=== PATIENT | female | born 1985 | race African-American/Black ===

== ENCOUNTER 2017-06-15 11:53 | Inpatient (IN) | payer OTHER ==
[~2017-06-15] VITALS: Ht 182.9 cm; Wt 130.1 kg
[2017-06-15] MEDS ORDERED: SODIUM CHLORIDE 0.9% 1,000 ML IV ONE (13:24)
[2017-06-15] MEDS ORDERED: MORPHINE SULFATE 4 MG/ML, 1ML IVPush PRN (13:30)
[2017-06-15] MEDS ORDERED: SODIUM CHLORIDE 0.9% 1,000ML IVBOLUS ONE ×2 (13:30)
[2017-06-15] MEDS ORDERED: ONDANSETRON 2MG/ML, 2ML IVPush ONE (13:30)
[2017-06-15] MEDS ORDERED: SODIUM CHLORIDE FLUSH 10ML SYR IVF ONE (13:30)
[2017-06-15 13:53] LABS: INTERNATIONAL NORMALIZED RATIO 1.13 (0.93-1.1); PROTHROMBIN TIME 11.6 Seconds (9.6-11.5)
[2017-06-15 13:54] LABS: MEAN CORPUSCULAR HEMOGLOBIN 24.5 pg (27.0-34.8); MEAN CORPUSCULAR HGB CONC 32.5 g/dL (32.4-35.8); MEAN CORPUSCULAR VOLUME 75.2 fL (80-100); MEAN PLATELET VOLUME 8.4 fL (7.4-10.4); PLATELET COUNT 428 x10^3/uL (130-400); RED BLOOD COUNT 3.69 x10^6/uL (3.82-5.3); RED CELL DISTRIBUTION WIDTH 19.6 % (9.6-15.2)
[2017-06-15 13:56] LABS: ALANINE AMINOTRANSFERASE 13 U/L (12-78); ALBUMIN 2.9 g/dL (3.4-5.0); CALCIUM 7.9 mg/dL (8.5-10.1); CHLORIDE 113 mmol/L (98-107); CREATININE 9.36 mg/dL (0.55-1.02)
[2017-06-15 13:58] LABS: ALKALINE PHOSPHATASE 99 U/L (45-117); BILIRUBIN,TOTAL 0.6 mg/dL (0.2-1.0); TOTAL PROTEIN 10.9 g/dL (6.4-8.2)
[2017-06-15] MEDS ORDERED: MIDODRINE 5 MG TABLET PO ONE (14:00)
[2017-06-15 14:05] LABS: ANION GAP 15 mmol/L (5-15)
[2017-06-15] MEDS ORDERED: SODIUM BICARBONATE 8.4% 150 MEQ in DEXTROSE 5% 1,000 ML IV SCH (14:30)
[2017-06-15 14:47] LABS: BASOPHILS # (AUTO) 0.05 x10^3/uL (0-0.1); BASOPHILS % (AUTO) 0 % (0-1); EOSINOPHILS # (AUTO) 1.13 x10^3/uL (0-0.4); EOSINOPHILS % (AUTO) 6 % (1-7); LYMPHOCYTES # (AUTO) 2.31 x10^3/uL (1-3.4); LYMPHOCYTES % (AUTO) 13 % (22-44); MD SCAN; MONOCYTES # (AUTO) 1.16 x10^3/uL (0.2-0.8); MONOCYTES % (AUTO) 6 % (2-9); NEUTROPHILS # (AUTO) 13.55 x10^3/uL (1.8-6.8); NEUTROPHILS % (AUTO) 75 % (42-75)
[2017-06-15] MEDS ORDERED: VANCOMYCIN PER PHARMACY MC ONE (15:00)
[2017-06-15] MEDS ORDERED: VANCOMYCIN 2,000 MG in SODIUM CHLORIDE 0.9% 500 ML IV ONE (15:00)
[2017-06-15] MEDS ORDERED: MORPHINE SULFATE 4 MG/ML, 1ML ONE (15:08)
[2017-06-15] MEDS ORDERED: ONDANSETRON 2MG/ML, 2ML ONE (15:09)
[2017-06-15 17:00] LABS: CULTURE INDICATED? YES; MICROSCOPIC INDICATED
[2017-06-15] MEDS ORDERED: HYDROCORTISONE 100 MG INJ. ONE (18:44)
[2017-06-15] MEDS ORDERED: MIDAZOLAM 1 MG/ML, 2ML ONE (18:47)
[2017-06-15] MEDS ORDERED: FENTANYL PF 250 MCG/5ML ONE (18:47)
[2017-06-15] MEDS ORDERED: PROPOFOL 10 MG/ML, 20ML ONE (18:52)
[2017-06-15] MEDS ORDERED: ROCURONIUM 10 MG/ML,10ML ONE (18:52)
[2017-06-15] MEDS ORDERED: ETOMIDATE 40 MG/20 ML ONE (18:52)
[2017-06-15] MEDS ORDERED: SUCCINYLCHOLINE 20 MG/ML, 10ML ONE (18:52)
[2017-06-15] MEDS ORDERED: PHENYLEPHRINE 10 MG/ML ONE (18:52)
[2017-06-15] MEDS ORDERED: HYDROmorphone 2 MG/ML, 1ML ONE (18:53)
[2017-06-15] MEDS: MIDODRINE 5 MG TABLET PO SCH (21:19)
[2017-06-15] MEDS: INSULIN LISPRO 100 UNITS/ML, PEN SQ-INSULIN SCH (21:30)
[2017-06-15] MEDS ORDERED: POLYETHYLENE GLYCOL 17 GM PACKET PO PRN (21:30)
[2017-06-15] MEDS ORDERED: VANCOMYCIN PER PHARMACY MC PRN (21:30)
[2017-06-15] MEDS ORDERED: BISACODYL 10 MG SUPP PR PRN (21:30)
[2017-06-15 21:43] LABS: ANION GAP 14 mmol/L (5-15); CALCIUM 6.7 mg/dL (8.5-10.1); CHLORIDE 118 mmol/L (98-107); CREATININE 7.91 mg/dL (0.55-1.02)
[2017-06-15 21:50] VITALS: BP 93/49
[2017-06-15] MEDS ORDERED: PHARMACOKINETIC CONSULTATION MC ONE (22:00)
[2017-06-15] MEDS ORDERED: PIPERACILLIN/TAZO/PMX 3.375GM 50 ML IV SCH (22:00)
[2017-06-15] MEDS ORDERED: PHARMACOKINETIC MONITORING MC PRN (22:00)
[2017-06-15] MEDS: HYDROcodone/APAP 5/325 TABLET PO PRN (22:29)
[2017-06-15] MEDS: PIPERACILLIN/TAZO/PMX 2.25GM 50 ML IV SCH (22:29)
[2017-06-16 03:30] VITALS: BP 85/43
[2017-06-16] MEDS: ONDANSETRON ODT 4 MG PO PRN ×2 (03:38→07:32)
[2017-06-16] MEDS ORDERED: NOREPINEPHRINE 4 MG in SODIUM CHLORIDE 0.9% 246 ML IV PRN (05:00)
[2017-06-16] MEDS ORDERED: SODIUM CHLORIDE 0.9%, 500ML IVBOLUS ONE (05:00)
[2017-06-16] MEDS ORDERED: SODIUM CHLORIDE 0.9% 1,000 ML IV SCH ×2 (05:00)
[2017-06-16] MEDS: PIPERACILLIN/TAZO/PMX 2.25GM 50 ML IV SCH (05:02)
[2017-06-16 05:18] LABS: ANION GAP 13 mmol/L (5-15); CALCIUM 6.3 mg/dL (8.5-10.1); CHLORIDE 119 mmol/L (98-107)
[2017-06-16 05:21] LABS: ALANINE AMINOTRANSFERASE 9 U/L (12-78); ALKALINE PHOSPHATASE 85 U/L (45-117); BASOPHILS # (AUTO) 0.09 x10^3/uL (0-0.1); BASOPHILS % (AUTO) 1 % (0-1); BILIRUBIN,TOTAL 0.5 mg/dL (0.2-1.0); CREATININE 8.02 mg/dL (0.55-1.02); EOSINOPHILS # (AUTO) 0.93 x10^3/uL (0-0.4); EOSINOPHILS % (AUTO) 6 % (1-7); LYMPHOCYTES # (AUTO) 1.35 x10^3/uL (1-3.4); LYMPHOCYTES % (AUTO) 9 % (22-44); MD NO; MEAN CORPUSCULAR HEMOGLOBIN 24.2 pg (27.0-34.8); MEAN CORPUSCULAR HGB CONC 32.3 g/dL (32.4-35.8); MEAN CORPUSCULAR VOLUME 75.1 fL (80-100); MEAN PLATELET VOLUME 7.9 fL (7.4-10.4); MONOCYTES # (AUTO) 1.12 x10^3/uL (0.2-0.8); MONOCYTES % (AUTO) 7 % (2-9); NEUTROPHILS # (AUTO) 11.68 x10^3/uL (1.8-6.8); NEUTROPHILS % (AUTO) 77 % (42-75); PLATELET COUNT 359 x10^3/uL (130-400); RED BLOOD COUNT 3.05 x10^6/uL (3.82-5.3); RED CELL DISTRIBUTION WIDTH 19.9 % (9.6-15.2); TOTAL PROTEIN 8.2 g/dL (6.4-8.2)
[2017-06-16] MEDS: SODIUM BICARBONATE 8.4% 150 MEQ in DEXTROSE 5% 1,000 ML IV SCH ×2 (05:27→16:20)
[2017-06-16] MEDS: INSULIN LISPRO 100 UNITS/ML, PEN SQ-INSULIN SCH ×3 (07:00→16:00)
[2017-06-16] MEDS: PANTOPRAZOLE 40 MG IV IVPush SCH (07:35)
[2017-06-16 07:59] LABS: HEMOGLOBIN A1C 4.7 % (4.2-6.3)
[2017-06-16] MEDS: MIDODRINE 5 MG TABLET PO SCH ×3 (09:03→21:46)
[2017-06-16] MEDS: HYDROcodone/APAP 5/325 TABLET PO PRN ×3 (09:03→21:45)
[2017-06-16] MEDS: FLUDROCORTISONE 0.1 MG TABLET PO SCH (09:03)
[2017-06-16] MEDS ORDERED: MAGNESIUM SULFATE PMX 2GM/50ML 50 ML IVPB ONE (09:30)
[2017-06-16] MEDS: MEROPENEM 500 MG in SODIUM CHLORIDE 0.9% 100 ML IV SCH (09:35)
[2017-06-16 09:41] VITALS: BP 81/48
[2017-06-16 10:03] VITALS: BP 101/61
[2017-06-16] MEDS ORDERED: ONDANSETRON 2MG/ML, 2ML ONE (11:57)
[2017-06-16] MEDS: ONDANSETRON 2MG/ML, 2ML IVPush PRN (11:59)
[2017-06-16] MEDS: LINEZOLID PMX 600MG/300ML 300 ML IV SCH ×2 (11:59→21:46)
[2017-06-16] MEDS: morphine SULFATE 10 MG/ML, 1ML IVPush PRN (12:15)
[2017-06-16] MEDS ORDERED: PROMETHAZINE 25 MG/ML, 1ML ONE (12:20)
[2017-06-16 12:38] VITALS: BP_SYST 103; BP_DIAS 35; BP_DIAS 65
[2017-06-16 13:40] LABS: ABSOLUTE RETICS # 0.045 x10^6/uL (0.5-2.5); RETICULOCYTE COUNT % 1.25 % (0.5-1.5)
[2017-06-16 13:42] LABS: RED BLOOD COUNT 3.62 x10^6/uL (3.82-5.3)
[2017-06-16 13:47] LABS: CALCIUM 6.1 mg/dL (8.5-10.1)
[2017-06-17 03:43] VITALS: BP 125/85
[2017-06-17] MEDS: ONDANSETRON ODT 4 MG PO PRN (03:51)
[2017-06-17] MEDS: PROMETHAZINE 25 MG/ML, 1ML IM PRN (04:20)
[2017-06-17] MEDS: SODIUM BICARBONATE 8.4% 150 MEQ in DEXTROSE 5% 1,000 ML IV SCH (04:21)
[2017-06-17] MEDS: morphine SULFATE 10 MG/ML, 1ML IVPush PRN (04:25)
[2017-06-17 04:49] LABS: MEAN CORPUSCULAR HEMOGLOBIN 24.1 pg (27.0-34.8); MEAN CORPUSCULAR HGB CONC 32.6 g/dL (32.4-35.8); MEAN PLATELET VOLUME 8.1 fL (7.4-10.4); PLATELET COUNT 393 x10^3/uL (130-400); RED BLOOD COUNT 3.88 x10^6/uL (3.82-5.3); RED CELL DISTRIBUTION WIDTH 20.9 % (9.6-15.2)
[2017-06-17 04:52] LABS: ALBUMIN 1.9 g/dL (3.4-5.0); ANION GAP 7 mmol/L (5-15); CALCIUM 6.6 mg/dL (8.5-10.1); CHLORIDE 107 mmol/L (98-107)
[2017-06-17 04:55] LABS: ALANINE AMINOTRANSFERASE 7 U/L (12-78); ALKALINE PHOSPHATASE 101 U/L (45-117); BILIRUBIN,TOTAL 0.9 mg/dL (0.2-1.0)
[2017-06-17 05:52] LABS: BASOPHILS # (AUTO) 0.16 x10^3/uL (0-0.1); BASOPHILS % (AUTO) 1 % (0-1); EOSINOPHILS # (AUTO) 1.87 x10^3/uL (0-0.4); EOSINOPHILS % (AUTO) 7 % (1-7); LYMPHOCYTES # (AUTO) 2.41 x10^3/uL (1-3.4); LYMPHOCYTES % (AUTO) 9 % (22-44); MD SCAN; MONOCYTES # (AUTO) 1.89 x10^3/uL (0.2-0.8); MONOCYTES % (AUTO) 7 % (2-9); NEUTROPHILS # (AUTO) 21.44 x10^3/uL (1.8-6.8); NEUTROPHILS % (AUTO) 77 % (42-75)
[2017-06-17] MEDS ORDERED: MAGNESIUM SULFATE PMX 2GM/50ML 50 ML IV ONE (06:30)
[2017-06-17] MEDS ORDERED: POTASSIUM CHLORIDE 20 MEQ TAB.ER.PRT PO ONE (06:30)
[2017-06-17] MEDS ORDERED: POTASSIUM CHLORIDE 40 MEQ in SODIUM CHLORIDE 0.9% 100 ML IV ONE (08:00)
[2017-06-17] MEDS: PANTOPRAZOLE 40 MG IV IVPush SCH (08:01)
[2017-06-17] MEDS: FLUDROCORTISONE 0.1 MG TABLET PO SCH (08:02)
[2017-06-17] MEDS: MIDODRINE 5 MG TABLET PO SCH ×3 (08:02→19:50)
[2017-06-17] MEDS: ONDANSETRON 2MG/ML, 2ML IVPush PRN (08:24)
[2017-06-17] MEDS: MEROPENEM 500 MG in SODIUM CHLORIDE 0.9% 100 ML IV SCH (10:24)
[2017-06-17] MEDS: LINEZOLID PMX 600MG/300ML 300 ML IV SCH ×2 (11:17→23:30)
[2017-06-17] MEDS ORDERED: SODIUM CHLORIDE 0.9%, 500ML IVBOLUS ONE (15:30)
[2017-06-17] MEDS: SODIUM CHLORIDE 0.9% 1,000 ML IV SCH (15:30)
[2017-06-17] MEDS: HYDROcodone/APAP 5/325 TABLET PO PRN (19:40)
[2017-06-17] MEDS ORDERED: MEROPENEM 500 MG in SODIUM CHLORIDE 0.9% 100 ML IV SCH (22:00)
[2017-06-17] MEDS: ERGOCALCIFEROL 50,000 UNIT CAPSULE PO SCH (22:09)
[2017-06-17] MEDS: ARANESP 60 MCG/ML **ESRD SQ SCH (22:10)
[2017-06-18] MEDS: ONDANSETRON 2MG/ML, 2ML IVPush PRN ×3 (02:15→19:50)
[2017-06-18 02:32] VITALS: BP 117/80
[2017-06-18 04:35] LABS: MEAN CORPUSCULAR HGB CONC 31.9 g/dL (32.4-35.8); MEAN CORPUSCULAR VOLUME 75.3 fL (80-100); MEAN PLATELET VOLUME 7.3 fL (7.4-10.4); PLATELET COUNT 361 x10^3/uL (130-400); RED BLOOD COUNT 3.56 x10^6/uL (3.82-5.3); RED CELL DISTRIBUTION WIDTH 21.6 % (9.6-15.2)
[2017-06-18 04:47] LABS: ALANINE AMINOTRANSFERASE 7 U/L (12-78); ALBUMIN 1.9 g/dL (3.4-5.0); ANION GAP 8 mmol/L (5-15); CALCIUM 6.5 mg/dL (8.5-10.1); CHLORIDE 110 mmol/L (98-107); CREATININE 5.04 mg/dL (0.55-1.02)
[2017-06-18 04:49] LABS: ALKALINE PHOSPHATASE 93 U/L (45-117); BILIRUBIN,TOTAL 0.6 mg/dL (0.2-1.0); TOTAL PROTEIN 7.6 g/dL (6.4-8.2)
[2017-06-18 05:10] LABS: BASOPHILS # (AUTO) 0.04 x10^3/uL (0-0.1); BASOPHILS % (AUTO) 0 % (0-1); EOSINOPHILS # (AUTO) 2.08 x10^3/uL (0-0.4); EOSINOPHILS % (AUTO) 10 % (1-7); LYMPHOCYTES # (AUTO) 2.73 x10^3/uL (1-3.4); LYMPHOCYTES % (AUTO) 13 % (22-44); MD SCAN; MONOCYTES # (AUTO) 1.38 x10^3/uL (0.2-0.8); MONOCYTES % (AUTO) 7 % (2-9); NEUTROPHILS # (AUTO) 14.38 x10^3/uL (1.8-6.8); NEUTROPHILS % (AUTO) 70 % (42-75)
[2017-06-18] MEDS: SODIUM CHLORIDE 0.9% 1,000 ML IV SCH (05:46)
[2017-06-18] MEDS: PANTOPRAZOLE 40 MG IV IVPush SCH (06:29)
[2017-06-18] MEDS: MIDODRINE 5 MG TABLET PO SCH ×3 (08:22→21:18)
[2017-06-18] MEDS: SEVELAMER 800MG TABLET PO SCH ×3 (08:22→15:35)
[2017-06-18] MEDS: SODIUM BICARBONATE 650 MG TABLET PO SCH ×3 (08:22→15:35)
[2017-06-18] MEDS: FLUDROCORTISONE 0.1 MG TABLET PO SCH (08:23)
[2017-06-18] MEDS: LINEZOLID PMX 600MG/300ML 300 ML IV SCH ×2 (10:26→21:18)
[2017-06-18] MEDS: HEPARIN 5,000 UNITS/ML, 1ML SQ SCH ×2 (13:17→21:14)
[2017-06-18 13:59] LABS: CLOSTRIDIUM DIFFICILE ANTIGEN POSITIVE; CLOSTRIDIUM DIFFICILE TOXIN NEGATIVE (Negative)
[2017-06-18] MEDS ORDERED: FENTANYL PF 250 MCG/5ML ONE (17:01)
[2017-06-18] MEDS ORDERED: MIDAZOLAM 1 MG/ML, 2ML ONE (17:01)
[2017-06-18] MEDS ORDERED: LIDOCAINE GEL 2%, 5ML ONE (17:02)
[2017-06-18] MEDS ORDERED: PROPOFOL 10 MG/ML, 20ML ONE (17:03)
[2017-06-18] MEDS ORDERED: NEOSTIGMINE 1 MG/ML, 10ML ONE (17:03)
[2017-06-18] MEDS ORDERED: GLYCOPYRROLATE 0.2MG/1ML, 5ML ONE (17:03)
[2017-06-18] MEDS ORDERED: DEXAMETHASONE 4 MG/ML, 1ML ONE (17:03)
[2017-06-18] MEDS ORDERED: ROCURONIUM 10 MG/ML,10ML ONE (17:03)
[2017-06-18] MEDS ORDERED: CEFAZOLIN 1,000 MG ONE (17:03)
[2017-06-18] MEDS ORDERED: SUCCINYLCHOLINE 20 MG/ML, 10ML ONE (17:03)
[2017-06-18] MEDS ORDERED: ONDANSETRON 2MG/ML, 2ML ONE (17:03)
[2017-06-18] MEDS ORDERED: DAKIN'S SOLUTION 1/4 STRENGTH 1,000 ML IRRIG SOLN EXT SCH (17:50)
[2017-06-18] MEDS ORDERED: hydrALAzine 20 MG/ML, 1ML IV PRN (18:30)
[2017-06-18] MEDS ORDERED: FENTANYL PF 100 MCG/2ML IV PRN (18:30)
[2017-06-18] MEDS ORDERED: LABETALOL 5MG/ML, 20ML IV PRN (18:30)
[2017-06-18] MEDS ORDERED: HYDROcodone/APAP 7.5-325MG/15ML UDC PO PRN (18:30)
[2017-06-18] MEDS ORDERED: PROMETHAZINE 25 MG/ML, 1ML IV PRN (18:30)
[2017-06-18] MEDS ORDERED: HYDROmorphone 1 MG/ML, 1ML IV PRN (18:30)
[2017-06-18] MEDS ORDERED: ACETAMINOPHEN 325 MG TABLET PO PRN (18:30)
[2017-06-18] MEDS ORDERED: METOPROLOL 1 MG/ML, 5ML IV PRN (18:30)
[2017-06-18] MEDS ORDERED: EPHEDRINE 50 MG/ML, 1ML IVPush PRN (18:30)
[2017-06-18] MEDS ORDERED: PROMETHAZINE 12.5 MG SUPP PR PRN (18:30)
[2017-06-18] MEDS ORDERED: OXYcodone 5 MG/5 ML ORAL.SOL UDC PO PRN (18:30)
[2017-06-18] MEDS ORDERED: ONDANSETRON 2MG/ML, 2ML IVPush PRN (18:30)
[2017-06-18] MEDS ORDERED: MIDAZOLAM 1 MG/ML, 2ML IV PRN (18:30)
[2017-06-18] MEDS ORDERED: ALBUTEROL SULFATE 2.5 MG/3 ML NPPB PRN (18:30)
[2017-06-18] MEDS: PROMETHAZINE 25 MG/ML, 1ML IM PRN (19:59)
[2017-06-18] MEDS: VANCOMYCIN 50 MG/ML ORAL SUSP PO SCH (21:18)
[2017-06-19] MEDS: VANCOMYCIN 50 MG/ML ORAL SUSP PO SCH ×4 (02:19→20:18)
[2017-06-19] MEDS: ONDANSETRON 2MG/ML, 2ML IVPush PRN ×3 (02:19→16:18)
[2017-06-19] MEDS: FENTANYL PF 100 MCG/2ML IVPush PRN ×4 (02:20→21:19)
[2017-06-19 03:09] VITALS: BP 96/59
[2017-06-19 04:54] LABS: BASOPHILS # (AUTO) 0.05 x10^3/uL (0-0.1); BASOPHILS % (AUTO) 0 % (0-1); EOSINOPHILS # (AUTO) 0.66 x10^3/uL (0-0.4); EOSINOPHILS % (AUTO) 5 % (1-7); LYMPHOCYTES # (AUTO) 2.22 x10^3/uL (1-3.4); LYMPHOCYTES % (AUTO) 15 % (22-44); MD NO; MEAN CORPUSCULAR HEMOGLOBIN 23.6 pg (27.0-34.8); MEAN CORPUSCULAR HGB CONC 31.3 g/dL (32.4-35.8); MEAN CORPUSCULAR VOLUME 75.5 fL (80-100); MEAN PLATELET VOLUME 7.5 fL (7.4-10.4); MONOCYTES # (AUTO) 1.07 x10^3/uL (0.2-0.8); MONOCYTES % (AUTO) 7 % (2-9); NEUTROPHILS % (AUTO) 73 % (42-75); PLATELET COUNT 315 x10^3/uL (130-400); RED BLOOD COUNT 3.08 x10^6/uL (3.82-5.3); RED CELL DISTRIBUTION WIDTH 21.8 % (9.6-15.2)
[2017-06-19 05:05] LABS: ALBUMIN 1.7 g/dL (3.4-5.0); ANION GAP 7 mmol/L (5-15); CALCIUM 6.9 mg/dL (8.5-10.1); CHLORIDE 111 mmol/L (98-107)
[2017-06-19 05:08] LABS: CREATININE 4.33 mg/dL (0.55-1.02)
[2017-06-19] MEDS: HEPARIN 5,000 UNITS/ML, 1ML SQ SCH (06:00)
[2017-06-19] MEDS ORDERED: AMPICILLIN/SULBACTAM 3 GM in SODIUM CHLORIDE 0.9% 100 ML IV SCH (08:00)
[2017-06-19] MEDS ORDERED: MAGNESIUM SULFATE PMX 2GM/50ML 50 ML IV ONE (08:00)
[2017-06-19] MEDS: SEVELAMER 800MG TABLET PO SCH ×3 (08:00→16:19)
[2017-06-19] MEDS: PANTOPRAZOLE 40 MG IV IVPush SCH (08:30)
[2017-06-19] MEDS ORDERED: DAKIN'S SOLUTION 1/4 STRENGTH 1,000 ML IRRIG SOLN EXT SCH (09:00)
[2017-06-19] MEDS: MIDODRINE 5 MG TABLET PO SCH ×3 (09:17→21:18)
[2017-06-19] MEDS: FLUDROCORTISONE 0.1 MG TABLET PO SCH (09:17)
[2017-06-19] MEDS: SODIUM BICARBONATE 650 MG TABLET PO SCH ×3 (10:05→16:19)
[2017-06-19] MEDS: POTASSIUM CHLORIDE 20 MEQ TAB.ER.PRT PO SCH ×2 (11:25→16:19)
[2017-06-19] MEDS: LACTOBACILLUS CHEW TABLET PO SCH ×2 (16:19→21:16)
[2017-06-19] MEDS: AMPICILLIN/SULBACTAM 3 GM in SODIUM CHLORIDE 0.9% 100 ML IV SCH (21:16)
[2017-06-20] VITALS (7 sets, daily range): BP systolic 112–139; BP diastolic 67–93
[2017-06-20] MEDS: VANCOMYCIN 50 MG/ML ORAL SUSP PO SCH ×4 (02:52→21:04)
[2017-06-20] MEDS: ONDANSETRON 2MG/ML, 2ML IVPush PRN ×2 (03:25→09:47)
[2017-06-20] MEDS: FENTANYL PF 100 MCG/2ML IVPush PRN ×3 (03:25→10:09)
[2017-06-20 04:41] LABS: MEAN CORPUSCULAR HGB CONC 31.8 g/dL (32.4-35.8); MEAN CORPUSCULAR VOLUME 75.2 fL (80-100); MEAN PLATELET VOLUME 7.1 fL (7.4-10.4); PLATELET COUNT 330 x10^3/uL (130-400); RED BLOOD COUNT 2.93 x10^6/uL (3.82-5.3); RED CELL DISTRIBUTION WIDTH 21.7 % (9.6-15.2)
[2017-06-20 04:54] LABS: ALBUMIN 1.8 g/dL (3.4-5.0); CALCIUM 6.9 mg/dL (8.5-10.1); CHLORIDE 111 mmol/L (98-107); CREATININE 4.04 mg/dL (0.55-1.02)
[2017-06-20 04:55] LABS: ANION GAP 7 mmol/L (5-15)
[2017-06-20 05:50] LABS: BASOPHILS # (AUTO) 0.09 x10^3/uL (0-0.1); BASOPHILS % (AUTO) 1 % (0-1); EOSINOPHILS # (AUTO) 1.01 x10^3/uL (0-0.4); EOSINOPHILS % (AUTO) 7 % (1-7); LYMPHOCYTES # (AUTO) 3.02 x10^3/uL (1-3.4); LYMPHOCYTES % (AUTO) 21 % (22-44); MD SCAN; MONOCYTES # (AUTO) 1.08 x10^3/uL (0.2-0.8); MONOCYTES % (AUTO) 7 % (2-9); NEUTROPHILS # (AUTO) 9.37 x10^3/uL (1.8-6.8); NEUTROPHILS % (AUTO) 64 % (42-75)
[2017-06-20] MEDS ORDERED: POTASSIUM CHLORIDE 20 MEQ TAB.ER.PRT PO ONE (08:00)
[2017-06-20] MEDS: SODIUM BICARBONATE 650 MG TABLET PO SCH ×3 (08:27→17:18)
[2017-06-20] MEDS: LACTOBACILLUS CHEW TABLET PO SCH ×3 (08:27→21:04)
[2017-06-20] MEDS: SEVELAMER 800MG TABLET PO SCH ×3 (08:27→17:18)
[2017-06-20] MEDS: FLUDROCORTISONE 0.1 MG TABLET PO SCH (08:27)
[2017-06-20] MEDS: MIDODRINE 5 MG TABLET PO SCH ×3 (08:27→21:04)
[2017-06-20] MEDS: PANTOPROZOLE 40MG TABLET PO SCH (08:29)
[2017-06-20] MEDS: POTASSIUM CHLORIDE 20 MEQ TAB.ER.PRT PO SCH (08:29)
[2017-06-20] MEDS ORDERED: DAKIN'S SOLUTION 1/4 STRENGTH 1,000 ML IRRIG SOLN EXT SCH (09:00)
[2017-06-20] MEDS: AMPICILLIN/SULBACTAM 3 GM in SODIUM CHLORIDE 0.9% 100 ML IV SCH ×2 (10:02→21:44)
[2017-06-20] MEDS: ONDANSETRON ODT 4 MG PO PRN (16:06)
[2017-06-20] MEDS: HYDROcodone/APAP 5/325 TABLET PO PRN (16:06)
[2017-06-20] MEDS: PROMETHAZINE 25 MG/ML, 1ML IM PRN (19:56)
[2017-06-21 02:58] LABS: BASOPHILS # (AUTO) 0.09 x10^3/uL (0-0.1); BASOPHILS % (AUTO) 1 % (0-1); EOSINOPHILS # (AUTO) 1.26 x10^3/uL (0-0.4); EOSINOPHILS % (AUTO) 8 % (1-7); LYMPHOCYTES # (AUTO) 3.04 x10^3/uL (1-3.4); LYMPHOCYTES % (AUTO) 20 % (22-44); MD NO; MEAN CORPUSCULAR HEMOGLOBIN 24.4 pg (27.0-34.8); MEAN CORPUSCULAR HGB CONC 31.7 g/dL (32.4-35.8); MEAN PLATELET VOLUME 7.3 fL (7.4-10.4); MONOCYTES # (AUTO) 1.31 x10^3/uL (0.2-0.8); MONOCYTES % (AUTO) 8 % (2-9); NEUTROPHILS # (AUTO) 9.77 x10^3/uL (1.8-6.8); NEUTROPHILS % (AUTO) 63 % (42-75); PLATELET COUNT 306 x10^3/uL (130-400); RED BLOOD COUNT 3.14 x10^6/uL (3.82-5.3)
[2017-06-21] MEDS: VANCOMYCIN 50 MG/ML ORAL SUSP PO SCH ×4 (03:19→22:00)
[2017-06-21] MEDS: HYDROcodone/APAP 5/325 TABLET PO PRN ×5 (03:19→22:29)
[2017-06-21] MEDS: ONDANSETRON 2MG/ML, 2ML IVPush PRN ×3 (03:19→14:33)
[2017-06-21 03:23] VITALS: BP 115/72
[2017-06-21] MEDS: DAKIN'S SOLUTION 1/4 STRENGTH 1,000 ML IRRIG SOLN EXT SCH ×2 (04:34→09:00)
[2017-06-21 08:57] VITALS: BP 121/84
[2017-06-21] MEDS ORDERED: DAKIN'S SOLUTION 1/4 STRENGTH 1,000 ML IRRIG SOLN EXT SCH (09:00)
[2017-06-21] MEDS: AMPICILLIN/SULBACTAM 3 GM in SODIUM CHLORIDE 0.9% 100 ML IV SCH ×2 (09:01→22:30)
[2017-06-21] MEDS: LACTOBACILLUS CHEW TABLET PO SCH ×3 (09:02→22:00)
[2017-06-21] MEDS: FLUDROCORTISONE 0.1 MG TABLET PO SCH (09:02)
[2017-06-21] MEDS: SEVELAMER 800MG TABLET PO SCH ×3 (09:02→17:37)
[2017-06-21] MEDS: SODIUM BICARBONATE 650 MG TABLET PO SCH ×3 (09:02→17:37)
[2017-06-21] MEDS: MIDODRINE 5 MG TABLET PO SCH ×3 (09:03→21:58)
[2017-06-21] MEDS: PANTOPROZOLE 40MG TABLET PO SCH (09:08)
[2017-06-21] MEDS: morphine SULFATE 10 MG/ML, 1ML IVPush PRN ×2 (10:52→14:33)
[2017-06-21] MEDS: PROMETHAZINE 25 MG/ML, 1ML IM PRN ×2 (10:52→18:14)
[2017-06-21 11:26] LABS: ANION GAP 7 mmol/L (5-15); CALCIUM 7.1 mg/dL (8.5-10.1); CHLORIDE 110 mmol/L (98-107); CREATININE 3.46 mg/dL (0.55-1.02)
[2017-06-21 12:46] VITALS: BP 132/85
[2017-06-21 19:44] VITALS: BP 91/53
[2017-06-22] MEDS: ONDANSETRON 2MG/ML, 2ML IVPush PRN ×2 (01:20→09:44)
[2017-06-22 01:21] VITALS: BP 111/59
[2017-06-22] MEDS: VANCOMYCIN 50 MG/ML ORAL SUSP PO SCH ×4 (03:00→21:52)
[2017-06-22 04:58] LABS: MEAN CORPUSCULAR HEMOGLOBIN 25.1 pg (27.0-34.8); MEAN CORPUSCULAR HGB CONC 32.2 g/dL (32.4-35.8); MEAN CORPUSCULAR VOLUME 77.8 fL (80-100); MEAN PLATELET VOLUME 7.8 fL (7.4-10.4); PLATELET COUNT 279 x10^3/uL (130-400); RED BLOOD COUNT 2.85 x10^6/uL (3.82-5.3); RED CELL DISTRIBUTION WIDTH 21.2 % (9.6-15.2)
[2017-06-22 06:15] LABS: BASOPHILS # (AUTO) 0.03 x10^3/uL (0-0.1); BASOPHILS % (AUTO) 0 % (0-1); EOSINOPHILS # (AUTO) 1.27 x10^3/uL (0-0.4); EOSINOPHILS % (AUTO) 9 % (1-7); LYMPHOCYTES # (AUTO) 2.08 x10^3/uL (1-3.4); LYMPHOCYTES % (AUTO) 15 % (22-44); MD SCAN; MONOCYTES # (AUTO) 0.84 x10^3/uL (0.2-0.8); MONOCYTES % (AUTO) 6 % (2-9); NEUTROPHILS # (AUTO) 9.28 x10^3/uL (1.8-6.8); NEUTROPHILS % (AUTO) 69 % (42-75)
[2017-06-22 07:21] VITALS: BP 113/63
[2017-06-22] MEDS: DAKIN'S SOLUTION 1/4 STRENGTH 1,000 ML IRRIG SOLN EXT SCH (09:00)
[2017-06-22] MEDS: PANTOPROZOLE 40MG TABLET PO SCH (09:44)
[2017-06-22] MEDS: LACTOBACILLUS CHEW TABLET PO SCH ×3 (09:44→21:52)
[2017-06-22] MEDS: MIDODRINE 5 MG TABLET PO SCH ×3 (09:45→21:00)
[2017-06-22] MEDS: SEVELAMER 800MG TABLET PO SCH ×3 (09:45→16:30)
[2017-06-22] MEDS: SODIUM BICARBONATE 650 MG TABLET PO SCH ×3 (09:45→16:37)
[2017-06-22] MEDS: FLUDROCORTISONE 0.1 MG TABLET PO SCH (09:45)
[2017-06-22] MEDS: HYDROcodone/APAP 5/325 TABLET PO PRN ×2 (09:45→16:30)
[2017-06-22] MEDS: morphine SULFATE 10 MG/ML, 1ML IVPush PRN ×2 (10:31→23:50)
[2017-06-22] MEDS: AMPICILLIN/SULBACTAM 3 GM in SODIUM CHLORIDE 0.9% 100 ML IV SCH ×2 (11:44→21:55)
[2017-06-22 12:45] VITALS: BP 112/68
[2017-06-22] MEDS: PROMETHAZINE 25 MG/ML, 1ML IM PRN (16:28)
[2017-06-22 20:58] VITALS: BP 146/88
[2017-06-22] MEDS: ONDANSETRON ODT 4 MG PO PRN (21:52)
[2017-06-23 03:18] VITALS: BP 88/42
[2017-06-23] MEDS: MIDODRINE 5 MG TABLET PO SCH ×3 (03:29→19:22)
[2017-06-23] MEDS: VANCOMYCIN 50 MG/ML ORAL SUSP PO SCH ×4 (03:29→21:01)
[2017-06-23] MEDS: ONDANSETRON ODT 4 MG PO PRN ×2 (03:29→08:41)
[2017-06-23 06:32] LABS: MEAN CORPUSCULAR HEMOGLOBIN 25.2 pg (27.0-34.8); MEAN CORPUSCULAR HGB CONC 32.4 g/dL (32.4-35.8); MEAN CORPUSCULAR VOLUME 77.7 fL (80-100); MEAN PLATELET VOLUME 7.7 fL (7.4-10.4); PLATELET COUNT 306 x10^3/uL (130-400); RED BLOOD COUNT 2.77 x10^6/uL (3.82-5.3); RED CELL DISTRIBUTION WIDTH 21.6 % (9.6-15.2)
[2017-06-23 06:40] LABS: ANION GAP 8 mmol/L (5-15); CALCIUM 7.1 mg/dL (8.5-10.1); CHLORIDE 107 mmol/L (98-107); CREATININE 2.92 mg/dL (0.55-1.02)
[2017-06-23 06:41] LABS: ALBUMIN 1.7 g/dL (3.4-5.0)
[2017-06-23 06:43] LABS: ALKALINE PHOSPHATASE 87 U/L (45-117); BILIRUBIN,TOTAL 0.5 mg/dL (0.2-1.0); TOTAL PROTEIN 7.3 g/dL (6.4-8.2)
[2017-06-23] MEDS: PROMETHAZINE 25 MG/ML, 1ML IM PRN (06:43)
[2017-06-23 06:44] LABS: ALANINE AMINOTRANSFERASE < 6 U/L (12-78)
[2017-06-23 06:52] LABS: BASOPHILS # (AUTO) 0.03 x10^3/uL (0-0.1); BASOPHILS % (AUTO) 0 % (0-1); EOSINOPHILS # (AUTO) 1.59 x10^3/uL (0-0.4); EOSINOPHILS % (AUTO) 12 % (1-7); LYMPHOCYTES # (AUTO) 2.98 x10^3/uL (1-3.4); LYMPHOCYTES % (AUTO) 22 % (22-44); MONOCYTES # (AUTO) 1.11 x10^3/uL (0.2-0.8); MONOCYTES % (AUTO) 8 % (2-9); NEUTROPHILS # (AUTO) 8.05 x10^3/uL (1.8-6.8); NEUTROPHILS % (AUTO) 59 % (42-75)
[2017-06-23 06:53] LABS: MD SCAN
[2017-06-23] MEDS: LACTOBACILLUS CHEW TABLET PO SCH ×3 (08:44→21:01)
[2017-06-23] MEDS: FLUDROCORTISONE 0.1 MG TABLET PO SCH (08:44)
[2017-06-23] MEDS: SEVELAMER 800MG TABLET PO SCH ×3 (08:44→16:43)
[2017-06-23] MEDS: PANTOPROZOLE 40MG TABLET PO SCH (08:44)
[2017-06-23] MEDS: SODIUM BICARBONATE 650 MG TABLET PO SCH ×3 (08:44→16:42)
[2017-06-23 11:07] VITALS: BP 114/71
[2017-06-23] MEDS: AMPICILLIN/SULBACTAM 3 GM in SODIUM CHLORIDE 0.9% 100 ML IV SCH ×2 (11:08→19:20)
[2017-06-23] MEDS: morphine SULFATE 10 MG/ML, 1ML IVPush PRN ×2 (11:08→20:24)
[2017-06-23] MEDS: DAKIN'S SOLUTION 1/4 STRENGTH 1,000 ML IRRIG SOLN EXT SCH (11:09)
[2017-06-23] MEDS ORDERED: PROCHLORPERAZINE 5 MG/ML, 2ML IM PRN (11:30)
[2017-06-23] MEDS: HYDROcodone/APAP 5/325 TABLET PO PRN (13:10)
[2017-06-23 15:07] VITALS: BP 97/59
[2017-06-23 21:00] VITALS: BP 134/65
[2017-06-24] MEDS: AMPICILLIN/SULBACTAM 3 GM in SODIUM CHLORIDE 0.9% 100 ML IV SCH ×3 (03:19→19:56)
[2017-06-24] MEDS: VANCOMYCIN 50 MG/ML ORAL SUSP PO SCH ×4 (03:19→22:07)
[2017-06-24 03:36] VITALS: BP 105/65
[2017-06-24 08:12] VITALS: BP 94/53
[2017-06-24 08:35] LABS: ANION GAP 7 mmol/L (5-15); CALCIUM 6.8 mg/dL (8.5-10.1); CHLORIDE 107 mmol/L (98-107); CREATININE 2.62 mg/dL (0.55-1.02)
[2017-06-24] MEDS: SODIUM BICARBONATE 650 MG TABLET PO SCH ×3 (08:40→17:26)
[2017-06-24] MEDS: LACTOBACILLUS CHEW TABLET PO SCH ×3 (08:40→22:11)
[2017-06-24] MEDS: FLUDROCORTISONE 0.1 MG TABLET PO SCH (08:40)
[2017-06-24] MEDS: PANTOPROZOLE 40MG TABLET PO SCH (08:40)
[2017-06-24] MEDS: MIDODRINE 5 MG TABLET PO SCH ×3 (08:41→22:11)
[2017-06-24] MEDS: SEVELAMER 800MG TABLET PO SCH ×3 (08:41→17:26)
[2017-06-24] MEDS: morphine SULFATE 10 MG/ML, 1ML IVPush PRN ×3 (09:49→22:12)
[2017-06-24] MEDS: DAKIN'S SOLUTION 1/4 STRENGTH 1,000 ML IRRIG SOLN EXT SCH (09:49)
[2017-06-24] MEDS: ONDANSETRON 2MG/ML, 2ML IVPush PRN ×2 (09:49→22:07)
[2017-06-24 13:19] VITALS: BP 108/64
[2017-06-24] MEDS ORDERED: POTASSIUM CHLORIDE 20 MEQ TAB.ER.PRT PO ONE (13:30)
[2017-06-24] MEDS: ONDANSETRON ODT 4 MG PO PRN (15:59)
[2017-06-24 21:19] VITALS: BP 102/65
[2017-06-24] MEDS: ERGOCALCIFEROL 50,000 UNIT CAPSULE PO SCH (22:11)
[2017-06-24] MEDS: ARANESP 60 MCG/ML **ESRD SQ SCH (22:57)
[2017-06-25] VITALS (12 sets, daily range): BP systolic 90–114; BP diastolic 43–74
[2017-06-25] MEDS: VANCOMYCIN 50 MG/ML ORAL SUSP PO SCH ×4 (04:03→23:24)
[2017-06-25] MEDS: ONDANSETRON 2MG/ML, 2ML IVPush PRN (04:03)
[2017-06-25] MEDS: AMPICILLIN/SULBACTAM 3 GM in SODIUM CHLORIDE 0.9% 100 ML IV SCH ×3 (04:03→20:02)
[2017-06-25] MEDS: morphine SULFATE 10 MG/ML, 1ML IVPush PRN ×2 (04:04→14:28)
[2017-06-25 06:14] LABS: MEAN CORPUSCULAR HEMOGLOBIN 25.1 pg (27.0-34.8); MEAN CORPUSCULAR HGB CONC 32.2 g/dL (32.4-35.8); MEAN CORPUSCULAR VOLUME 77.9 fL (80-100); MEAN PLATELET VOLUME 7.2 fL (7.4-10.4); PLATELET COUNT 388 x10^3/uL (130-400); RED BLOOD COUNT 2.66 x10^6/uL (3.82-5.3); RED CELL DISTRIBUTION WIDTH 21.8 % (9.6-15.2)
[2017-06-25 06:18] LABS: ALBUMIN 1.6 g/dL (3.4-5.0); ANION GAP 7 mmol/L (5-15); CALCIUM 6.5 mg/dL (8.5-10.1); CHLORIDE 109 mmol/L (98-107); CREATININE 2.67 mg/dL (0.55-1.02)
[2017-06-25 06:19] LABS: ALANINE AMINOTRANSFERASE < 6 U/L (12-78)
[2017-06-25 06:20] LABS: ALKALINE PHOSPHATASE 90 U/L (45-117); BILIRUBIN,TOTAL 0.3 mg/dL (0.2-1.0); TOTAL PROTEIN 6.9 g/dL (6.4-8.2)
[2017-06-25] MEDS: PANTOPROZOLE 40MG TABLET PO SCH (08:29)
[2017-06-25] MEDS: SEVELAMER 800MG TABLET PO SCH (08:30)
[2017-06-25] MEDS: SODIUM BICARBONATE 650 MG TABLET PO SCH ×3 (08:30→16:43)
[2017-06-25] MEDS: MIDODRINE 5 MG TABLET PO SCH ×3 (08:30→21:44)
[2017-06-25] MEDS: FLUDROCORTISONE 0.1 MG TABLET PO SCH (08:30)
[2017-06-25] MEDS: LACTOBACILLUS CHEW TABLET PO SCH ×3 (08:30→21:44)
[2017-06-25 08:55] LABS: MD YES
[2017-06-25 09:26] LABS: EOS#(MANUAL) 0.23 x10^3/uL (0.0-0.4); EOS% (MANUAL) 2 % (1-7); LYMPH#(MANUAL) 1.87 x10^3/uL (1-3.4); LYMPHS% (MANUAL) 16 % (22-44); SEG#(MANUAL) 9.59 x10^3/uL (1.8-6.8); SEGS% (MANUAL) 82 % (42-75)
[2017-06-25 09:27] LABS: <PLATELET ESTIMATE> ADEQUATE; <PLT MORPHOLOGY> NORMAL PLT MORPH; ANISOCYTOSIS 1+
[2017-06-25] MEDS: DAKIN'S SOLUTION 1/4 STRENGTH 1,000 ML IRRIG SOLN EXT SCH (11:08)
[2017-06-25] MEDS ORDERED: MAGNESIUM SULFATE PMX 4GM/100M 100 ML IV ONE (12:00)
[2017-06-25] MEDS ORDERED: POTASSIUM CHLORIDE 20 MEQ TAB.ER.PRT PO ONE (13:30)
[2017-06-25] MEDS: ONDANSETRON ODT 4 MG PO PRN (14:17)
[2017-06-25] MEDS: HYDROcodone/APAP 5/325 TABLET PO PRN (20:14)
[2017-06-26 00:16] VITALS: BP 114/66
[2017-06-26 00:39] VITALS: BP 103/57
[2017-06-26] MEDS: morphine SULFATE 10 MG/ML, 1ML IVPush PRN ×2 (00:58→13:04)
[2017-06-26 01:19] VITALS: BP 107/61
[2017-06-26] MEDS: AMPICILLIN/SULBACTAM 3 GM in SODIUM CHLORIDE 0.9% 100 ML IV SCH ×3 (04:50→20:26)
[2017-06-26] MEDS: VANCOMYCIN 50 MG/ML ORAL SUSP PO SCH ×4 (04:50→21:50)
[2017-06-26] MEDS: HYDROcodone/APAP 5/325 TABLET PO PRN (04:50)
[2017-06-26 06:20] LABS: BASOPHILS # (AUTO) 0.04 x10^3/uL (0-0.1); BASOPHILS % (AUTO) 0 % (0-1); EOSINOPHILS # (AUTO) 1.01 x10^3/uL (0-0.4); EOSINOPHILS % (AUTO) 9 % (1-7); LYMPHOCYTES # (AUTO) 2.69 x10^3/uL (1-3.4); LYMPHOCYTES % (AUTO) 23 % (22-44); MD NO; MEAN CORPUSCULAR HGB CONC 32.4 g/dL (32.4-35.8); MEAN CORPUSCULAR VOLUME 80.5 fL (80-100); MEAN PLATELET VOLUME 7.6 fL (7.4-10.4); MONOCYTES # (AUTO) 1.16 x10^3/uL (0.2-0.8); MONOCYTES % (AUTO) 10 % (2-9); NEUTROPHILS # (AUTO) 6.84 x10^3/uL (1.8-6.8); NEUTROPHILS % (AUTO) 58 % (42-75); PLATELET COUNT 397 x10^3/uL (130-400); RED BLOOD COUNT 3.15 x10^6/uL (3.82-5.3); RED CELL DISTRIBUTION WIDTH 19.9 % (9.6-15.2)
[2017-06-26 06:29] LABS: ALBUMIN 1.7 g/dL (3.4-5.0); ANION GAP 7 mmol/L (5-15); CALCIUM 6.5 mg/dL (8.5-10.1); CHLORIDE 107 mmol/L (98-107)
[2017-06-26] MEDS ORDERED: AMPI3VIA IV (08:19)
[2017-06-26] MEDS ORDERED: DARB60VI SQ (08:19)
[2017-06-26] MEDS ORDERED: FLUD0.1T PO (08:19)
[2017-06-26] MEDS ORDERED: PROC10VI3 IM (08:19)
[2017-06-26] MEDS ORDERED: ONDA4TAB13 PO (08:19)
[2017-06-26] MEDS ORDERED: VANC1VIA3 PO (08:19)
[2017-06-26] MEDS ORDERED: ERGO500017 PO (08:19)
[2017-06-26] MEDS ORDERED: MIDO5TAB PO (08:19)
[2017-06-26] MEDS ORDERED: ACID1TAB7 PO (08:19)
[2017-06-26] MEDS ORDERED: Dakin's Solution 1/4 Strength EXT (08:19)
[2017-06-26] MEDS ORDERED: SODI650T PO (08:19)
[2017-06-26] MEDS ORDERED: PROM25AM6 IM (08:19)
[2017-06-26] MEDS ORDERED: ONDA4VIA4 IVPush (08:20)
[2017-06-26] MEDS ORDERED: HYDR-3240 PO (08:20)
[2017-06-26 08:40] VITALS: BP 96/56
[2017-06-26] MEDS: DAKIN'S SOLUTION 1/4 STRENGTH 1,000 ML IRRIG SOLN EXT SCH (09:00)
[2017-06-26] MEDS: SODIUM BICARBONATE 650 MG TABLET PO SCH ×3 (10:02→16:35)
[2017-06-26] MEDS: FLUDROCORTISONE 0.1 MG TABLET PO SCH (10:03)
[2017-06-26] MEDS: MIDODRINE 5 MG TABLET PO SCH ×3 (10:03→20:25)
[2017-06-26] MEDS: LACTOBACILLUS CHEW TABLET PO SCH ×3 (10:03→20:25)
[2017-06-26 14:32] VITALS: BP 95/51
[2017-06-26 22:22] VITALS: BP 112/70
[2017-06-27] MEDS: HYDROcodone/APAP 5/325 TABLET PO PRN (00:08)
[2017-06-27 01:27] VITALS: BP 129/71
[2017-06-27] MEDS: AMPICILLIN/SULBACTAM 3 GM in SODIUM CHLORIDE 0.9% 100 ML IV SCH ×3 (03:25→21:53)
[2017-06-27] MEDS: VANCOMYCIN 50 MG/ML ORAL SUSP PO SCH ×4 (03:25→21:54)
[2017-06-27] MEDS: morphine SULFATE 10 MG/ML, 1ML IVPush PRN ×3 (04:14→21:46)
[2017-06-27 05:34] LABS: ALBUMIN 1.7 g/dL (3.4-5.0); ANION GAP 9 mmol/L (5-15); CALCIUM 6.8 mg/dL (8.5-10.1); CHLORIDE 109 mmol/L (98-107)
[2017-06-27 05:38] LABS: ALANINE AMINOTRANSFERASE 8 U/L (12-78); ALKALINE PHOSPHATASE 90 U/L (45-117); BILIRUBIN,TOTAL 0.5 mg/dL (0.2-1.0); CREATININE 2.31 mg/dL (0.55-1.02); TOTAL PROTEIN 7.2 g/dL (6.4-8.2)
[2017-06-27 05:58] LABS: BASOPHILS # (AUTO) 0.06 x10^3/uL (0-0.1); BASOPHILS % (AUTO) 1 % (0-1); EOSINOPHILS # (AUTO) 1.08 x10^3/uL (0-0.4); EOSINOPHILS % (AUTO) 9 % (1-7); LYMPHOCYTES # (AUTO) 2.49 x10^3/uL (1-3.4); LYMPHOCYTES % (AUTO) 21 % (22-44); MD NO; MEAN CORPUSCULAR HGB CONC 32.5 g/dL (32.4-35.8); MEAN CORPUSCULAR VOLUME 80.1 fL (80-100); MEAN PLATELET VOLUME 7.4 fL (7.4-10.4); MONOCYTES % (AUTO) 9 % (2-9); NEUTROPHILS # (AUTO) 7.14 x10^3/uL (1.8-6.8); NEUTROPHILS % (AUTO) 61 % (42-75); PLATELET COUNT 486 x10^3/uL (130-400); RED BLOOD COUNT 3.28 x10^6/uL (3.82-5.3); RED CELL DISTRIBUTION WIDTH 19.7 % (9.6-15.2)
[2017-06-27 08:00] VITALS: BP 118/57
[2017-06-27] MEDS: FLUDROCORTISONE 0.1 MG TABLET PO SCH (10:30)
[2017-06-27] MEDS: SODIUM BICARBONATE 650 MG TABLET PO SCH ×3 (10:30→16:10)
[2017-06-27] MEDS: MIDODRINE 5 MG TABLET PO SCH ×3 (10:31→21:54)
[2017-06-27] MEDS: LACTOBACILLUS CHEW TABLET PO SCH ×3 (10:31→21:53)
[2017-06-27] MEDS: DAKIN'S SOLUTION 1/4 STRENGTH 1,000 ML IRRIG SOLN EXT SCH (10:32)
[2017-06-27] MEDS ORDERED: MORPHINE SULFATE 4 MG/ML, 1ML IVPush ONE (13:00)
[2017-06-27 14:31] VITALS: BP 113/76
[2017-06-27 20:00] VITALS: BP 100/61
[2017-06-28 02:00] VITALS: BP 115/71
[2017-06-28] MEDS: AMPICILLIN/SULBACTAM 3 GM in SODIUM CHLORIDE 0.9% 100 ML IV SCH ×3 (04:15→21:19)
[2017-06-28] MEDS: VANCOMYCIN 50 MG/ML ORAL SUSP PO SCH ×4 (04:15→22:30)
[2017-06-28] MEDS: ONDANSETRON 2MG/ML, 2ML IVPush PRN (08:40)
[2017-06-28] MEDS: morphine SULFATE 10 MG/ML, 1ML IVPush PRN ×2 (08:40→22:30)
[2017-06-28 08:54] VITALS: BP 120/77
[2017-06-28] MEDS: DAKIN'S SOLUTION 1/4 STRENGTH 1,000 ML IRRIG SOLN EXT SCH (10:00)
[2017-06-28] MEDS: LACTOBACILLUS CHEW TABLET PO SCH ×3 (11:04→21:19)
[2017-06-28] MEDS: MIDODRINE 5 MG TABLET PO SCH ×3 (11:05→21:19)
[2017-06-28] MEDS: FLUDROCORTISONE 0.1 MG TABLET PO SCH (11:05)
[2017-06-28] MEDS: SODIUM BICARBONATE 650 MG TABLET PO SCH ×3 (11:05→17:43)
[2017-06-28] MEDS: CHOLESTYRAMINE LIGHT 4GM PACKET PO SCH ×2 (13:13→17:43)
[2017-06-28 16:20] VITALS: BP 105/59
[2017-06-28] MEDS: HYDROcodone/APAP 5/325 TABLET PO PRN (16:23)
[2017-06-28 19:38] VITALS: BP 102/70
[2017-06-29 01:29] VITALS: BP 130/82
[2017-06-29] MEDS: VANCOMYCIN 50 MG/ML ORAL SUSP PO SCH ×2 (04:13→09:03)
[2017-06-29] MEDS: AMPICILLIN/SULBACTAM 3 GM in SODIUM CHLORIDE 0.9% 100 ML IV SCH ×2 (04:14→13:03)
[2017-06-29 05:36] LABS: MEAN CORPUSCULAR HEMOGLOBIN 26.1 pg (27.0-34.8); MEAN CORPUSCULAR HGB CONC 32.5 g/dL (32.4-35.8); MEAN CORPUSCULAR VOLUME 80.3 fL (80-100); RED BLOOD COUNT 3.12 x10^6/uL (3.82-5.3); RED CELL DISTRIBUTION WIDTH 19.3 % (9.6-15.2)
[2017-06-29 05:37] LABS: CHLORIDE 106 mmol/L (98-107)
[2017-06-29 05:45] LABS: ALBUMIN 1.7 g/dL (3.4-5.0); ANION GAP 6 mmol/L (5-15); CREATININE 2.06 mg/dL (0.55-1.02)
[2017-06-29 06:00] LABS: MEAN PLATELET VOLUME 7.1 fL (7.4-10.4); NEUTROPHILS % (AUTO) 55 % (42-75); PLATELET COUNT 605 x10^3/uL (130-400)
[2017-06-29 06:01] LABS: BASOPHILS # (AUTO) 0.06 x10^3/uL (0-0.1); BASOPHILS % (AUTO) 1 % (0-1); EOSINOPHILS % (AUTO) 9 % (1-7); LYMPHOCYTES # (AUTO) 3.12 x10^3/uL (1-3.4); LYMPHOCYTES % (AUTO) 26 % (22-44); MD SCAN; MONOCYTES # (AUTO) 1.03 x10^3/uL (0.2-0.8); MONOCYTES % (AUTO) 9 % (2-9); NEUTROPHILS # (AUTO) 6.52 x10^3/uL (1.8-6.8)
[2017-06-29 06:26] VITALS: BP 83/59
[2017-06-29 07:55] VITALS: BP 100/65
[2017-06-29] MEDS: DAKIN'S SOLUTION 1/4 STRENGTH 1,000 ML IRRIG SOLN EXT SCH (09:00)
[2017-06-29] MEDS: FLUDROCORTISONE 0.1 MG TABLET PO SCH (09:02)
[2017-06-29] MEDS: SODIUM BICARBONATE 650 MG TABLET PO SCH ×2 (09:02→13:03)
[2017-06-29] MEDS: MIDODRINE 5 MG TABLET PO SCH (09:03)
[2017-06-29] MEDS: LACTOBACILLUS CHEW TABLET PO SCH (09:03)
[2017-06-29] MEDS: CHOLESTYRAMINE LIGHT 4GM PACKET PO SCH ×2 (09:03→13:03)
[2017-06-29] MEDS: morphine SULFATE 10 MG/ML, 1ML IVPush PRN (10:18)
== END 2017-06-29 14:48 | DRG 853 ==
LOC: ED 15:32 → EDIP 15:33 → ED 15:51 → CCU 20:06 → 4WST 06-20 15:49
PROVIDERS: ADMIT Hospitalist; ATTEND Hospitalist
PROC: 0J970ZZ Drainage of Back Subcutaneous Tissue and Fascia, Open Approach (ICD-10-PCS; 2017-06-15)
PROC: 0JBC0ZZ Excision of Pelvic Region Subcutaneous Tissue and Fascia, Open Approach (ICD-10-PCS; 2017-06-15)
PROC: 0J990ZZ Drainage of Buttock Subcutaneous Tissue and Fascia, Open Approach (ICD-10-PCS; principal; 2017-06-15 19:00)
PROC: 30233N1 Transfusion of Nonautologous Red Blood Cells into Peripheral Vein, Percutaneous Approach (ICD-10-PCS; 2017-06-16)
PROC: 02HV33Z Insertion of Infusion Device into Superior Vena Cava, Percutaneous Approach (ICD-10-PCS; 2017-06-16)
PROC: B548ZZA Ultrasonography of Superior Vena Cava, Guidance (ICD-10-PCS; 2017-06-16)
PROC: 5A1D70Z Performance of Urinary Filtration, Intermittent, Less than 6 Hours Per Day (ICD-10-PCS; 2017-06-16)
PROC: 0HB8XZZ Excision of Buttock Skin, External Approach (ICD-10-PCS; 2017-06-18)
PROC: 0HB9XZZ Excision of Perineum Skin, External Approach (ICD-10-PCS; 2017-06-18)
DX: A41.9 Sepsis, unspecified organism (principal); R65.21 Severe sepsis with septic shock; N17.0 Acute kidney failure with tubular necrosis; N18.4 Chronic kidney disease, stage 4 (severe); L02.31 Cutaneous abscess of buttock; N39.0 Urinary tract infection, site not specified; L73.2 Hidradenitis suppurativa; E11.22 Type 2 diabetes mellitus with diabetic chronic kidney disease; D63.1 Anemia in chronic kidney disease; B96.4 Proteus (mirabilis) (morganii) as the cause of diseases classified elsewhere; B95.2 Enterococcus as the cause of diseases classified elsewhere; B95.1 Streptococcus, group B, as the cause of diseases classified elsewhere; E03.9 Hypothyroidism, unspecified; E87.6 Hypokalemia
CPT/HCPCS: 36415; 36556; 71045; 74176; 76770; 76937; 77001; 80048; 80053; 80069; 80202; 81001; 82306; 82310; 82533; 82570; 82728; 83036; 83540; 83550; 83605; 83735; 83970; 84100; 84300; 85014; 85018; 85025; 85045; 85610; 85730; 86706; 86850; 86900; 86923; 87015; 87040; 87070; 87075; 87076; 87077; 87081; 87086; 87102; 87116; 87147; 87186; 87205; 87206; 87324; 87340; 87493; 88305; 93005; 96361; 96365; 96366; 96368; 96375; J0295; J0690; J0882; J1100; J2020; J2185; J2250; J2405; J2543; J2550; J2704; J2710; J3010; J3370; J3480; J3490; J7070; Q0162; C1751; C9113; J0330; J0780; J1642; J1720; J2270; J2370; J3475; J7030; J7040; J7050; P9016

== ENCOUNTER 2017-11-12 15:38 | Inpatient (IN) | payer OTHER, MEDICAID ==
[~2017-11-12] VITALS: Ht 182.9 cm; Wt 109.7 kg
[~2017-11-12 15:38] MED LIST: ACID1TAB7 PO; AMPI3VIA IV; CALC0.25 PO; DARB60VI SQ; DOXY100T PO; Dakin's Solution 1/4 Strength EXT; ERGO500017 PO; FLUD0.1T PO; FURO20TA3 PO; HYDR-3240 PO; LACT1CAP61 PO; LEVO25TA4 PO; LIOT5TAB3 PO; LOPE2CAP PO; METO5TAB2 PO; MIDO10TA PO; MIDO5TAB PO; MULT1CAP24 PO; ONDA4TAB13 PO; ONDA4VIA4 IVPush; PANT40TA5 PO; POTA99TA24 PO; PROC10VI3 IM; PROM25AM6 IM; SODI650T PO; VANC1VIA3 PO; VENL100T PO
[2017-11-12] MEDS ORDERED: ACETAMINOPHEN 325 MG TABLET ONE (15:49)
[2017-11-12] MEDS ORDERED: PLEASE ENTER HEIGHT AND WEIGHT MC SCH (16:00)
[2017-11-12] MEDS ORDERED: SODIUM CHLORIDE FLUSH 10ML SYR IVF ONE (16:00)
[2017-11-12] MEDS ORDERED: SODIUM CHLORIDE 0.9% 1,000ML IVBOLUS ONE ×2 (16:00→17:00)
[2017-11-12 16:19] LABS: MEAN CORPUSCULAR HEMOGLOBIN 27.5 pg (27.0-34.8); MEAN CORPUSCULAR HGB CONC 33.8 g/dL (32.4-35.8); MEAN CORPUSCULAR VOLUME 81.4 fL (80-100); MEAN PLATELET VOLUME 8.1 fL (7.4-10.4); PLATELET COUNT 366 x10^3/uL (130-400); RED CELL DISTRIBUTION WIDTH 17.7 % (9.6-15.2)
[2017-11-12] MEDS ORDERED: CEFTRIAXONE PMX 1GM/50ML 50 ML ONE (16:28)
[2017-11-12 16:30] LABS: INTERNATIONAL NORMALIZED RATIO 1.08 (0.93-1.1); PROTHROMBIN TIME 11.2 Seconds (9.6-11.5)
[2017-11-12] MEDS ORDERED: ACETAMINOPHEN 325 MG TABLET PO ONE (16:30)
[2017-11-12] MEDS ORDERED: CEFTRIAXONE PMX 1GM/50ML 50 ML IV ONE (16:30)
[2017-11-12 16:33] LABS: ALANINE AMINOTRANSFERASE 23 U/L (12-78); ALBUMIN 2.3 g/dL (3.4-5.0); ANION GAP 15 mmol/L (5-15); CALCIUM 8.1 mg/dL (8.5-10.1); CHLORIDE 108 mmol/L (98-107)
[2017-11-12 16:36] LABS: ALKALINE PHOSPHATASE 239 U/L (45-117); BILIRUBIN,TOTAL 0.9 mg/dL (0.2-1.0); CREATININE 7.75 mg/dL (0.55-1.02); TOTAL PROTEIN 8.6 g/dL (6.4-8.2)
[2017-11-12 16:47] LABS: MD YES
[2017-11-12 16:49] LABS: BAND#(MANUAL) 1.37 x10^3/uL; BANDS%(MANUAL) 3 % (0-7); LYMPH#(MANUAL) 1.83 x10^3/uL (1-3.4); LYMPHS% (MANUAL) 4 % (22-44); MONOS#(MANUAL) 2.74 x10^3/uL (0.3-2.7); MONOS% (MANUAL) 6 % (2-9); SEG#(MANUAL) 39.76 x10^3/uL (1.8-6.8); SEGS% (MANUAL) 87 % (42-75)
[2017-11-12 16:50] LABS: ANISOCYTOSIS 1+; MICROCYTOSIS 1+
[2017-11-12 16:51] LABS: TEAR DROPS 1+
[2017-11-12 16:52] LABS: TOXIC GRAN 1+
[2017-11-12 16:53] LABS: <PLATELET ESTIMATE> ADEQUATE; <PLT MORPHOLOGY> NORMAL PLT MORPH
[2017-11-12] MEDS ORDERED: METO5TAB2 PO (16:53)
[2017-11-12] MEDS ORDERED: ALLO100T30 PO (16:53)
[2017-11-12] MEDS ORDERED: FLUD0.1T PO (16:53)
[2017-11-12] MEDS ORDERED: LEVO25TA4 PO (16:53)
[2017-11-12 16:55] LABS: MICROSCOPIC INDICATED
[2017-11-12] MEDS ORDERED: POTASSIUM CHLORIDE 40 MEQ in SODIUM CHLORIDE 0.9% 500 ML IV ONE (17:00)
[2017-11-12 17:02] LABS: CULTURE INDICATED? YES
[2017-11-12 17:09] LABS: HCG UR SG 1.021 (1.003-1.030)
[2017-11-12] MEDS ORDERED: VANCOMYCIN 2,000 MG in SODIUM CHLORIDE 0.9% 500 ML IV ONE (17:30)
[2017-11-12] MEDS ORDERED: VANCOMYCIN PER PHARMACY MC PRN (17:30)
[2017-11-12] MEDS ORDERED: SODIUM CHLORIDE 0.9% 1,000 ML IV SCH (18:10)
[2017-11-12] MEDS ORDERED: FURO-93 PO (18:20)
[2017-11-12] MEDS ORDERED: POLYETHYLENE GLYCOL 17 GM PACKET PO PRN (18:30)
[2017-11-12] MEDS ORDERED: POTASSIUM CHLORIDE 10% 40 MEQ/30 ML UDC PO ONE (18:30)
[2017-11-12] MEDS ORDERED: VASOPRESSIN 100 UNIT in SODIUM CHLORIDE 0.9% 495 ML IV PRN (18:30)
[2017-11-12] MEDS ORDERED: NOREPINEPHRINE 4 MG in SODIUM CHLORIDE 0.9% 246 ML IV PRN (18:30)
[2017-11-12] MEDS ORDERED: BISACODYL 10 MG SUPP PR PRN (18:30)
[2017-11-12] MEDS ORDERED: FENTANYL PF 100 MCG/2ML ONE (18:57)
[2017-11-12] MEDS: FENTANYL PF 100 MCG/2ML IVPush PRN (19:07)
[2017-11-12] MEDS ORDERED: NOREPINEPHRINE 16 MG in SODIUM CHLORIDE 0.9% 234 ML IV PRN (20:16)
[2017-11-12] MEDS: LINEZOLID PMX 600MG/300ML 300 ML IV SCH (20:36)
[2017-11-12] MEDS: HEPARIN 5,000 UNITS/ML, 1ML SQ SCH (20:47)
[2017-11-12] MEDS: VANCOMYCIN 50 MG/ML ORAL SUSP PO SCH (20:47)
[2017-11-12] MEDS ORDERED: FAMOTIDINE 20 MG/2 ML IVPush SCH (21:00)
[2017-11-12] MEDS: MEROPENEM 500 MG in SODIUM CHLORIDE 0.9% 100 ML IV SCH (22:48)
[2017-11-12 23:38] LABS: ANION GAP 16 mmol/L (5-15); CALCIUM 7.9 mg/dL (8.5-10.1); CHLORIDE 109 mmol/L (98-107)
[2017-11-13] MEDS: FENTANYL PF 100 MCG/2ML IVPush PRN ×5 (00:06→19:54)
[2017-11-13] MEDS: VANCOMYCIN 50 MG/ML ORAL SUSP PO SCH ×4 (03:02→20:05)
[2017-11-13] MEDS: ACETAMINOPHEN 325 MG TABLET PO PRN (03:02)
[2017-11-13 05:10] LABS: MEAN CORPUSCULAR HGB CONC 32.7 g/dL (32.4-35.8); MEAN CORPUSCULAR VOLUME 82.8 fL (80-100); MEAN PLATELET VOLUME 7.9 fL (7.4-10.4); PLATELET COUNT 391 x10^3/uL (130-400); RED BLOOD COUNT 3.11 x10^6/uL (3.82-5.3); RED CELL DISTRIBUTION WIDTH 17.9 % (9.6-15.2)
[2017-11-13] MEDS: HEPARIN 5,000 UNITS/ML, 1ML SQ SCH ×3 (05:16→20:06)
[2017-11-13 05:19] LABS: CHLORIDE 112 mmol/L (98-107)
[2017-11-13 05:27] LABS: ALANINE AMINOTRANSFERASE 26 U/L (12-78); ALBUMIN 1.9 g/dL (3.4-5.0); ALKALINE PHOSPHATASE 221 U/L (45-117); ANION GAP 15 mmol/L (5-15); BILIRUBIN,TOTAL 1.2 mg/dL (0.2-1.0); CALCIUM 8.1 mg/dL (8.5-10.1); CREATININE 6.33 mg/dL (0.55-1.02); TOTAL PROTEIN 7.6 g/dL (6.4-8.2)
[2017-11-13 05:52] LABS: MD YES
[2017-11-13 05:53] LABS: LYMPHS% (MANUAL) 5 % (22-44); MONOS#(MANUAL) 3.22 x10^3/uL (0.3-2.7); MONOS% (MANUAL) 7 % (2-9); SEG#(MANUAL) 40.48 x10^3/uL (1.8-6.8); SEGS% (MANUAL) 88 % (42-75)
[2017-11-13 05:54] VITALS: BP 102/63
[2017-11-13 05:54] LABS: ANISOCYTOSIS 1+
[2017-11-13 05:55] LABS: <PLATELET ESTIMATE> ADEQUATE; <PLT MORPHOLOGY> NORMAL PLT MORPH
[2017-11-13] MEDS: LINEZOLID PMX 600MG/300ML 300 ML IV SCH ×2 (06:25→17:57)
[2017-11-13] MEDS ORDERED: MAGNESIUM SULFATE PMX 4GM/100M 100 ML IVPB ONE (06:30)
[2017-11-13] MEDS ORDERED: POTASSIUM CHLORIDE 20 MEQ TAB.ER.PRT PO ONE (06:30)
[2017-11-13] MEDS: MEROPENEM 500 MG in SODIUM CHLORIDE 0.9% 100 ML IV SCH ×2 (09:20→20:04)
[2017-11-13] MEDS: POTASSIUM CHLORIDE 20 MEQ TAB.ER.PRT PO SCH ×2 (09:26→16:50)
[2017-11-13] MEDS: SODIUM BICARBONATE 8.4% 150 MEQ in DEXTROSE 5% 1,000 ML IV SCH ×2 (10:31→19:45)
[2017-11-13 10:37] LABS: CLOSTRIDIUM DIFFICILE ANTIGEN NEGATIVE; CLOSTRIDIUM DIFFICILE TOXIN NEGATIVE (Negative)
[2017-11-13] MEDS: MIDODRINE 5 MG TABLET PO SCH ×2 (16:50→22:22)
[2017-11-13 18:30] LABS: ANION GAP 12 mmol/L (5-15); CALCIUM 8.3 mg/dL (8.5-10.1); CHLORIDE 112 mmol/L (98-107); CREATININE 5.23 mg/dL (0.55-1.02)
[2017-11-13] MEDS ORDERED: FAMOTIDINE 20 MG/2 ML IVPush SCH (21:00)
[2017-11-14] MEDS: VANCOMYCIN 50 MG/ML ORAL SUSP PO SCH (02:45)
[2017-11-14 04:00] VITALS: BP 100/52
[2017-11-14] MEDS: HEPARIN 5,000 UNITS/ML, 1ML SQ SCH ×3 (04:19→23:48)
[2017-11-14] MEDS: FENTANYL PF 100 MCG/2ML IVPush PRN ×5 (04:35→23:47)
[2017-11-14 04:55] LABS: MEAN CORPUSCULAR HGB CONC 33.1 g/dL (32.4-35.8); MEAN CORPUSCULAR VOLUME 81.6 fL (80-100); PLATELET COUNT 382 x10^3/uL (130-400); RED CELL DISTRIBUTION WIDTH 18.3 % (9.6-15.2)
[2017-11-14 04:56] LABS: ALANINE AMINOTRANSFERASE 25 U/L (12-78); ALBUMIN 1.7 g/dL (3.4-5.0); ANION GAP 12 mmol/L (5-15); CHLORIDE 113 mmol/L (98-107)
[2017-11-14 04:59] LABS: ALKALINE PHOSPHATASE 281 U/L (45-117); BILIRUBIN,TOTAL 0.7 mg/dL (0.2-1.0)
[2017-11-14 06:10] LABS: MD YES
[2017-11-14 06:12] LABS: <PLATELET ESTIMATE> ADEQUATE; <PLT MORPHOLOGY> NORMAL PLT MORPH; ANISOCYTOSIS 1+; BASOS#(MANUAL) 0.45 x10^3/uL (0-0.1); BASOS% (MANUAL) 1 % (0-1); EOS#(MANUAL) 0.45 x10^3/uL (0.0-0.4); EOS% (MANUAL) 1 % (1-7); LYMPH#(MANUAL) 3.62 x10^3/uL (1-3.4); LYMPHS% (MANUAL) 8 % (22-44); METAMYELOCYTES# (MANUAL) 0.45 x10^3/uL (0-0); METAMYELOCYTES% (MANUAL) 1 % (0-1); MONOS#(MANUAL) 1.81 x10^3/uL (0.3-2.7); MONOS% (MANUAL) 4 % (2-9); SEG#(MANUAL) 38.51 x10^3/uL (1.8-6.8); SEGS% (MANUAL) 85 % (42-75)
[2017-11-14 06:13] LABS: POLYCHROMASIA 1+
[2017-11-14] MEDS: LINEZOLID PMX 600MG/300ML 300 ML IV SCH ×2 (06:22→18:13)
[2017-11-14] MEDS: SODIUM BICARBONATE 8.4% 150 MEQ in DEXTROSE 5% 1,000 ML IV SCH (08:10)
[2017-11-14] MEDS: LIOTHYRONINE 5 MCG TABLET PO SCH (08:11)
[2017-11-14] MEDS: FLUDROCORTISONE 0.1 MG TABLET PO SCH (08:11)
[2017-11-14] MEDS: CALCITRIOL 0.25 MCG CAPSULE PO SCH (08:12)
[2017-11-14] MEDS: MIDODRINE 5 MG TABLET PO SCH ×3 (08:12→19:58)
[2017-11-14] MEDS: VENLAFAXINE 50MG TABLET PO SCH (08:12)
[2017-11-14] MEDS: POTASSIUM CHLORIDE 20 MEQ TAB.ER.PRT PO SCH ×2 (08:12→16:43)
[2017-11-14] MEDS ORDERED: ONDANSETRON 2MG/ML, 2ML ONE (08:38)
[2017-11-14] MEDS: ONDANSETRON 2MG/ML, 2ML IVPush PRN ×2 (08:41→18:28)
[2017-11-14] MEDS: MEROPENEM 500 MG in SODIUM CHLORIDE 0.9% 100 ML IV SCH ×2 (08:41→20:29)
[2017-11-14] MEDS ORDERED: POTASSIUM CHLORIDE 20 MEQ TAB.ER.PRT PO SCH (09:00)
[2017-11-14] MEDS ORDERED: LEVOTHYROXINE 25 MCG TABLET PO SCH (09:00)
[2017-11-14 10:31] LABS: FREE T4 (FREE THYROXINE) 0.74 ng/dL (0.76-1.46)
[2017-11-14 14:41] LABS: ANION GAP 10 mmol/L (5-15); CALCIUM 7.7 mg/dL (8.5-10.1); CHLORIDE 111 mmol/L (98-107); CREATININE 3.81 mg/dL (0.55-1.02)
[2017-11-14] MEDS ORDERED: POTASSIUM CHLORIDE 40 MEQ in SODIUM CHLORIDE 0.9% 100 ML IV ONE (16:30)
[2017-11-14] MEDS: DEXTROSE 5% 1,000 ML IV SCH (16:42)
[2017-11-14] MEDS: ACETAMINOPHEN 325 MG TABLET PO PRN ×2 (19:58→23:48)
[2017-11-15] MEDS: DEXTROSE 5% 1,000 ML IV SCH ×3 (01:00→18:26)
[2017-11-15 04:00] VITALS: BP 125/79
[2017-11-15 04:31] LABS: MEAN CORPUSCULAR HEMOGLOBIN 27.3 pg (27.0-34.8); MEAN CORPUSCULAR HGB CONC 33.1 g/dL (32.4-35.8); MEAN CORPUSCULAR VOLUME 82.5 fL (80-100); MEAN PLATELET VOLUME 7.6 fL (7.4-10.4); PLATELET COUNT 418 x10^3/uL (130-400); RED BLOOD COUNT 2.71 x10^6/uL (3.82-5.3); RED CELL DISTRIBUTION WIDTH 18.7 % (9.6-15.2)
[2017-11-15 04:33] LABS: ANION GAP 8 mmol/L (5-15); CALCIUM 8.2 mg/dL (8.5-10.1); CHLORIDE 112 mmol/L (98-107)
[2017-11-15 04:34] LABS: CREATININE 3.11 mg/dL (0.55-1.02)
[2017-11-15 04:55] LABS: BASOPHILS # (AUTO) 0.02 x10^3/uL (0-0.1); BASOPHILS % (AUTO) 0 % (0-1); EOSINOPHILS # (AUTO) 0.65 x10^3/uL (0-0.4); EOSINOPHILS % (AUTO) 2 % (1-7); LYMPHOCYTES # (AUTO) 1.79 x10^3/uL (1-3.4); LYMPHOCYTES % (AUTO) 4 % (22-44); MD SCAN; MONOCYTES % (AUTO) 5 % (2-9); NEUTROPHILS # (AUTO) 36.23 x10^3/uL (1.8-6.8); NEUTROPHILS % (AUTO) 89 % (42-75)
[2017-11-15] MEDS: LEVOTHYROXINE 100 MCG TABLET PO SCH (05:55)
[2017-11-15] MEDS: LINEZOLID PMX 600MG/300ML 300 ML IV SCH (05:57)
[2017-11-15] MEDS ORDERED: LEVOTHYROXINE 200 MCG TABLET PO SCH (06:00)
[2017-11-15] MEDS: ACETAMINOPHEN 325 MG TABLET PO PRN (06:09)
[2017-11-15] MEDS: FENTANYL PF 100 MCG/2ML IVPush PRN (06:09)
[2017-11-15] MEDS: ONDANSETRON 2MG/ML, 2ML IVPush PRN (07:56)
[2017-11-15] MEDS: HEPARIN 5,000 UNITS/ML, 1ML SQ SCH ×2 (07:56→17:20)
[2017-11-15] MEDS: VENLAFAXINE 50MG TABLET PO SCH (07:57)
[2017-11-15] MEDS: LIOTHYRONINE 5 MCG TABLET PO SCH (07:57)
[2017-11-15] MEDS: FLUDROCORTISONE 0.1 MG TABLET PO SCH (07:57)
[2017-11-15] MEDS: MEROPENEM 500 MG in SODIUM CHLORIDE 0.9% 100 ML IV SCH ×2 (07:57→20:48)
[2017-11-15] MEDS: CALCITRIOL 0.25 MCG CAPSULE PO SCH (07:57)
[2017-11-15] MEDS: POTASSIUM CHLORIDE 20 MEQ TAB.ER.PRT PO SCH ×2 (07:58→17:19)
[2017-11-15] MEDS: MIDODRINE 5 MG TABLET PO SCH ×3 (07:58→20:49)
[2017-11-15 12:59] VITALS: BP 130/89
[2017-11-15 19:24] VITALS: BP 138/90
[2017-11-16 01:43] VITALS: BP 104/69
[2017-11-16] MEDS: DEXTROSE 5% 1,000 ML IV SCH (03:06)
[2017-11-16 05:16] LABS: MEAN PLATELET VOLUME 7.4 fL (7.4-10.4); PLATELET COUNT 471 x10^3/uL (130-400); RED BLOOD COUNT 2.73 x10^6/uL (3.82-5.3); RED CELL DISTRIBUTION WIDTH 18.3 % (9.6-15.2)
[2017-11-16 05:30] LABS: ANION GAP 9 mmol/L (5-15); CALCIUM 8.2 mg/dL (8.5-10.1); CHLORIDE 110 mmol/L (98-107)
[2017-11-16 05:43] LABS: % IRON SATURATION 29 % (20-55); CREATININE 2.19 mg/dL (0.55-1.02); FREE T4 (FREE THYROXINE) 0.74 ng/dL (0.76-1.46); IRON LEVEL 34 mcg/dL (50-170); TOTAL IRON BINDING CAPACITY 118 mcg/dL (250-450)
[2017-11-16] MEDS: LEVOTHYROXINE 100 MCG TABLET PO SCH (05:44)
[2017-11-16] MEDS: HEPARIN 5,000 UNITS/ML, 1ML SQ SCH ×3 (05:44→21:12)
[2017-11-16 06:01] LABS: MD YES
[2017-11-16 06:03] LABS: <PLATELET ESTIMATE> INCREASED; ANISOCYTOSIS 1+; LYMPH#(MANUAL) 2.94 x10^3/uL (1-3.4); LYMPHS% (MANUAL) 9 % (22-44); METAMYELOCYTES# (MANUAL) 0.33 x10^3/uL (0-0); METAMYELOCYTES% (MANUAL) 1 % (0-1); MONOS#(MANUAL) 0.98 x10^3/uL (0.3-2.7); MONOS% (MANUAL) 3 % (2-9); POLYCHROMASIA 1+; SEG#(MANUAL) 28.45 x10^3/uL (1.8-6.8); SEGS% (MANUAL) 87 % (42-75)
[2017-11-16 06:04] LABS: <PLT MORPHOLOGY> NORMAL PLT MORPH
[2017-11-16 07:01] VITALS: BP 113/74
[2017-11-16] MEDS: LIOTHYRONINE 5 MCG TABLET PO SCH (09:27)
[2017-11-16] MEDS: POTASSIUM CHLORIDE 20 MEQ TAB.ER.PRT PO SCH (09:27)
[2017-11-16] MEDS: MEROPENEM 500 MG in SODIUM CHLORIDE 0.9% 100 ML IV SCH ×2 (09:27→21:11)
[2017-11-16] MEDS: VENLAFAXINE 50MG TABLET PO SCH (09:28)
[2017-11-16] MEDS: FLUDROCORTISONE 0.1 MG TABLET PO SCH (09:29)
[2017-11-16] MEDS: CALCITRIOL 0.25 MCG CAPSULE PO SCH (09:29)
[2017-11-16] MEDS: MIDODRINE 5 MG TABLET PO SCH ×3 (09:30→21:12)
[2017-11-16] MEDS: GUAIFENESIN 200 MG TABLET PO SCH ×3 (11:02→21:11)
[2017-11-16 11:20] LABS: ABSOLUTE RETICS # 0.045 x10^6/uL (0.5-2.5); RETICULOCYTE COUNT % 1.68 % (0.5-1.5)
[2017-11-16 11:25] LABS: OCCULT BLOOD NEGATIVE (NEGATIVE)
[2017-11-16 11:29] LABS: RED BLOOD COUNT 7.4 x10^6/uL (3.82-5.3)
[2017-11-16 11:44] LABS: FOLATE LEVEL 6.6 ng/mL (3.1-17.5)
[2017-11-16 13:10] VITALS: BP 127/84
[2017-11-16 19:32] VITALS: BP 134/91
[2017-11-17 01:25] VITALS: BP 133/88
[2017-11-17 05:41] LABS: MEAN CORPUSCULAR HEMOGLOBIN 27.3 pg (27.0-34.8); MEAN CORPUSCULAR HGB CONC 32.8 g/dL (32.4-35.8); MEAN CORPUSCULAR VOLUME 83.1 fL (80-100); MEAN PLATELET VOLUME 7.3 fL (7.4-10.4); PLATELET COUNT 483 x10^3/uL (130-400); RED BLOOD COUNT 2.73 x10^6/uL (3.82-5.3); RED CELL DISTRIBUTION WIDTH 18.1 % (9.6-15.2)
[2017-11-17 05:47] LABS: ALBUMIN 1.7 g/dL (3.4-5.0); ANION GAP 7 mmol/L (5-15); CALCIUM 8.2 mg/dL (8.5-10.1); CHLORIDE 111 mmol/L (98-107)
[2017-11-17 05:50] LABS: ALANINE AMINOTRANSFERASE 13 U/L (12-78); ALKALINE PHOSPHATASE 276 U/L (45-117); BILIRUBIN,TOTAL 0.5 mg/dL (0.2-1.0); TOTAL PROTEIN 7.3 g/dL (6.4-8.2)
[2017-11-17 05:57] LABS: MD YES
[2017-11-17 06:02] LABS: LYMPH#(MANUAL) 1.52 x10^3/uL (1-3.4); LYMPHS% (MANUAL) 6 % (22-44); MONOS#(MANUAL) 1.78 x10^3/uL (0.3-2.7); MONOS% (MANUAL) 7 % (2-9); MYELOCYTES# (MANUAL) 0.25 x10^3/uL (0-0); MYELOCYTES% (MANUAL) 1 % (0-0); SEG#(MANUAL) 21.84 x10^3/uL (1.8-6.8); SEGS% (MANUAL) 86 % (42-75)
[2017-11-17 06:03] LABS: <PLATELET ESTIMATE> INCREASED; <PLT MORPHOLOGY> NORMAL PLT MORPH; ANISOCYTOSIS 1+; POLYCHROMASIA 1+
[2017-11-17] MEDS: GUAIFENESIN 200 MG TABLET PO SCH ×4 (06:12→20:59)
[2017-11-17] MEDS: HEPARIN 5,000 UNITS/ML, 1ML SQ SCH ×3 (06:13→20:59)
[2017-11-17] MEDS: LEVOTHYROXINE 100 MCG TABLET PO SCH (06:13)
[2017-11-17 07:45] VITALS: BP 110/77
[2017-11-17] MEDS: LIOTHYRONINE 5 MCG TABLET PO SCH (09:11)
[2017-11-17] MEDS: VENLAFAXINE 50MG TABLET PO SCH (09:11)
[2017-11-17] MEDS: CALCITRIOL 0.25 MCG CAPSULE PO SCH (09:11)
[2017-11-17] MEDS: MEROPENEM 500 MG in SODIUM CHLORIDE 0.9% 100 ML IV SCH ×2 (09:12→20:59)
[2017-11-17 13:25] VITALS: BP 117/78
[2017-11-17 19:47] VITALS: BP 115/78
[2017-11-18 01:07] VITALS: BP 132/83
[2017-11-18] MEDS: GUAIFENESIN 200 MG TABLET PO SCH ×4 (05:16→20:43)
[2017-11-18] MEDS: HEPARIN 5,000 UNITS/ML, 1ML SQ SCH ×3 (05:16→20:43)
[2017-11-18] MEDS: LEVOTHYROXINE 100 MCG TABLET PO SCH (05:16)
[2017-11-18 05:54] LABS: CALCIUM 8.3 mg/dL (8.5-10.1); CHLORIDE 113 mmol/L (98-107)
[2017-11-18 05:55] LABS: ALBUMIN 1.7 g/dL (3.4-5.0); ANION GAP 9 mmol/L (5-15); MEAN CORPUSCULAR HEMOGLOBIN 27.1 pg (27.0-34.8); MEAN CORPUSCULAR HGB CONC 32.6 g/dL (32.4-35.8); MEAN CORPUSCULAR VOLUME 83.1 fL (80-100); PLATELET COUNT 502 x10^3/uL (130-400); RED BLOOD COUNT 2.66 x10^6/uL (3.82-5.3); RED CELL DISTRIBUTION WIDTH 17.7 % (9.6-15.2)
[2017-11-18 06:00] LABS: ALANINE AMINOTRANSFERASE 13 U/L (12-78); ALKALINE PHOSPHATASE 249 U/L (45-117); BILIRUBIN,TOTAL 0.4 mg/dL (0.2-1.0); CREATININE 1.33 mg/dL (0.55-1.02); TOTAL PROTEIN 7.3 g/dL (6.4-8.2)
[2017-11-18 06:22] LABS: MD YES
[2017-11-18 06:23] LABS: BAND#(MANUAL) 0.41 x10^3/uL; BANDS%(MANUAL) 2 % (0-7); EOS% (MANUAL) 1 % (1-7); LYMPH#(MANUAL) 1.62 x10^3/uL (1-3.4); LYMPHS% (MANUAL) 8 % (22-44); METAMYELOCYTES# (MANUAL) 0.41 x10^3/uL (0-0); METAMYELOCYTES% (MANUAL) 2 % (0-1); MONOS#(MANUAL) 2.44 x10^3/uL (0.3-2.7); MONOS% (MANUAL) 12 % (2-9); SEG#(MANUAL) 15.23 x10^3/uL (1.8-6.8); SEGS% (MANUAL) 75 % (42-75)
[2017-11-18 06:24] LABS: <PLATELET ESTIMATE> INCREASED; ANISOCYTOSIS 1+; HYPOCHROMIA 1+; POLYCHROMASIA 1+
[2017-11-18 06:25] LABS: <PLT MORPHOLOGY> NORMAL PLT MORPH
[2017-11-18 07:40] VITALS: BP 138/83
[2017-11-18] MEDS: MEROPENEM 500 MG in SODIUM CHLORIDE 0.9% 100 ML IV SCH (08:31)
[2017-11-18] MEDS: LIOTHYRONINE 5 MCG TABLET PO SCH (08:32)
[2017-11-18] MEDS: VENLAFAXINE 50MG TABLET PO SCH (08:32)
[2017-11-18] MEDS: CALCITRIOL 0.25 MCG CAPSULE PO SCH (08:32)
[2017-11-18] MEDS: ERGOCALCIFEROL 50,000 UNIT CAPSULE PO SCH (08:38)
[2017-11-18 14:57] VITALS: BP 133/86
[2017-11-18 18:42] LABS: MEAN CORPUSCULAR HEMOGLOBIN 27.1 pg (27.0-34.8); MEAN CORPUSCULAR HGB CONC 32.8 g/dL (32.4-35.8); MEAN CORPUSCULAR VOLUME 82.8 fL (80-100); MEAN PLATELET VOLUME 6.8 fL (7.4-10.4); PLATELET COUNT 522 x10^3/uL (130-400); RED BLOOD COUNT 2.71 x10^6/uL (3.82-5.3); RED CELL DISTRIBUTION WIDTH 18.4 % (9.6-15.2)
[2017-11-18 19:25] LABS: BASOPHILS # (AUTO) 0.02 x10^3/uL (0-0.1); BASOPHILS % (AUTO) 0 % (0-1); EOSINOPHILS # (AUTO) 0.51 x10^3/uL (0-0.4); EOSINOPHILS % (AUTO) 3 % (1-7); LYMPHOCYTES # (AUTO) 2.06 x10^3/uL (1-3.4); LYMPHOCYTES % (AUTO) 10 % (22-44); MD SCAN; MONOCYTES # (AUTO) 1.24 x10^3/uL (0.2-0.8); MONOCYTES % (AUTO) 6 % (2-9); NEUTROPHILS # (AUTO) 16.79 x10^3/uL (1.8-6.8); NEUTROPHILS % (AUTO) 81 % (42-75)
[2017-11-18 19:41] VITALS: BP 144/91
[2017-11-18] MEDS: MEROPENEM 1 GM in SODIUM CHLORIDE 0.9% 100 ML IV SCH (20:42)
[2017-11-19 02:55] VITALS: BP 131/81
[2017-11-19 04:57] LABS: MEAN CORPUSCULAR HEMOGLOBIN 26.7 pg (27.0-34.8); MEAN CORPUSCULAR HGB CONC 32.4 g/dL (32.4-35.8); MEAN CORPUSCULAR VOLUME 82.4 fL (80-100); MEAN PLATELET VOLUME 6.7 fL (7.4-10.4); PLATELET COUNT 534 x10^3/uL (130-400); RED BLOOD COUNT 2.67 x10^6/uL (3.82-5.3)
[2017-11-19] MEDS: GUAIFENESIN 200 MG TABLET PO SCH ×4 (05:02→20:47)
[2017-11-19] MEDS: HEPARIN 5,000 UNITS/ML, 1ML SQ SCH ×3 (05:03→20:47)
[2017-11-19] MEDS: LEVOTHYROXINE 100 MCG TABLET PO SCH (05:03)
[2017-11-19 05:06] LABS: ALANINE AMINOTRANSFERASE 15 U/L (12-78); ALBUMIN 1.8 g/dL (3.4-5.0); ANION GAP 9 mmol/L (5-15); CALCIUM 8.2 mg/dL (8.5-10.1); CHLORIDE 115 mmol/L (98-107)
[2017-11-19 05:08] LABS: ALKALINE PHOSPHATASE 249 U/L (45-117); BILIRUBIN,TOTAL 0.3 mg/dL (0.2-1.0); TOTAL PROTEIN 7.7 g/dL (6.4-8.2)
[2017-11-19 05:18] LABS: BASOPHILS # (AUTO) 0.02 x10^3/uL (0-0.1); BASOPHILS % (AUTO) 0 % (0-1); EOSINOPHILS % (AUTO) 3 % (1-7); LYMPHOCYTES # (AUTO) 2.12 x10^3/uL (1-3.4); LYMPHOCYTES % (AUTO) 11 % (22-44); MD SCAN; MONOCYTES # (AUTO) 1.27 x10^3/uL (0.2-0.8); MONOCYTES % (AUTO) 7 % (2-9); NEUTROPHILS # (AUTO) 14.86 x10^3/uL (1.8-6.8); NEUTROPHILS % (AUTO) 79 % (42-75)
[2017-11-19 09:11] VITALS: BP 142/91
[2017-11-19] MEDS: VENLAFAXINE 50MG TABLET PO SCH (09:18)
[2017-11-19] MEDS: CALCITRIOL 0.25 MCG CAPSULE PO SCH (09:18)
[2017-11-19] MEDS: MEROPENEM 1 GM in SODIUM CHLORIDE 0.9% 100 ML IV SCH ×2 (09:18→20:47)
[2017-11-19] MEDS: LIOTHYRONINE 5 MCG TABLET PO SCH (09:19)
[2017-11-19 14:57] VITALS: BP 141/92
[2017-11-19 15:31] LABS: MEAN CORPUSCULAR HEMOGLOBIN 27.4 pg (27.0-34.8); MEAN CORPUSCULAR VOLUME 83.1 fL (80-100); MEAN PLATELET VOLUME 6.7 fL (7.4-10.4); PLATELET COUNT 553 x10^3/uL (130-400); RED BLOOD COUNT 2.66 x10^6/uL (3.82-5.3); RED CELL DISTRIBUTION WIDTH 17.9 % (9.6-15.2)
[2017-11-19 15:34] LABS: HEMOGRAM NOTE RECHECKED
[2017-11-19 15:59] LABS: BASOPHILS # (AUTO) 0.04 x10^3/uL (0-0.1); BASOPHILS % (AUTO) 0 % (0-1); EOSINOPHILS # (AUTO) 0.48 x10^3/uL (0-0.4); EOSINOPHILS % (AUTO) 3 % (1-7); LYMPHOCYTES # (AUTO) 1.83 x10^3/uL (1-3.4); LYMPHOCYTES % (AUTO) 10 % (22-44); MD SCAN; MONOCYTES # (AUTO) 1.27 x10^3/uL (0.2-0.8); MONOCYTES % (AUTO) 7 % (2-9); NEUTROPHILS # (AUTO) 15.01 x10^3/uL (1.8-6.8); NEUTROPHILS % (AUTO) 81 % (42-75)
[2017-11-19 20:25] VITALS: BP 133/86
[2017-11-20] VITALS (7 sets, daily range): BP systolic 119–149; BP diastolic 76–100
[2017-11-20 04:43] LABS: ANION GAP 7 mmol/L (5-15); CHLORIDE 115 mmol/L (98-107); CREATININE 1.13 mg/dL (0.55-1.02)
[2017-11-20 04:44] LABS: ALBUMIN 1.8 g/dL (3.4-5.0)
[2017-11-20 04:46] LABS: MEAN CORPUSCULAR HEMOGLOBIN 27.3 pg (27.0-34.8); MEAN CORPUSCULAR VOLUME 82.7 fL (80-100); MEAN PLATELET VOLUME 6.7 fL (7.4-10.4); PLATELET COUNT 544 x10^3/uL (130-400); RED BLOOD COUNT 2.55 x10^6/uL (3.82-5.3); RED CELL DISTRIBUTION WIDTH 17.8 % (9.6-15.2)
[2017-11-20 04:59] LABS: ALKALINE PHOSPHATASE 212 U/L (45-117); BILIRUBIN,TOTAL 0.5 mg/dL (0.2-1.0); TOTAL PROTEIN 7.4 g/dL (6.4-8.2)
[2017-11-20 05:00] LABS: ALANINE AMINOTRANSFERASE 17 U/L (12-78)
[2017-11-20] MEDS ORDERED: LEVOTHYROXINE 200 MCG TABLET ONE (05:12)
[2017-11-20] MEDS: GUAIFENESIN 200 MG TABLET PO SCH ×4 (05:25→20:22)
[2017-11-20] MEDS: HEPARIN 5,000 UNITS/ML, 1ML SQ SCH ×3 (05:25→20:22)
[2017-11-20] MEDS: LEVOTHYROXINE 100 MCG TABLET PO SCH (05:26)
[2017-11-20 05:50] LABS: BASOPHILS # (AUTO) 0.03 x10^3/uL (0-0.1); BASOPHILS % (AUTO) 0 % (0-1); EOSINOPHILS # (AUTO) 0.51 x10^3/uL (0-0.4); EOSINOPHILS % (AUTO) 3 % (1-7); LYMPHOCYTES # (AUTO) 2.11 x10^3/uL (1-3.4); LYMPHOCYTES % (AUTO) 14 % (22-44); MD SCAN; MONOCYTES # (AUTO) 1.23 x10^3/uL (0.2-0.8); MONOCYTES % (AUTO) 8 % (2-9); NEUTROPHILS # (AUTO) 11.14 x10^3/uL (1.8-6.8); NEUTROPHILS % (AUTO) 74 % (42-75)
[2017-11-20] MEDS: LIOTHYRONINE 5 MCG TABLET PO SCH (09:08)
[2017-11-20] MEDS: CALCITRIOL 0.25 MCG CAPSULE PO SCH (09:08)
[2017-11-20] MEDS: VENLAFAXINE 50MG TABLET PO SCH (09:08)
[2017-11-20] MEDS: MEROPENEM 1 GM in SODIUM CHLORIDE 0.9% 100 ML IV SCH ×2 (11:52→20:22)
[2017-11-20 13:41] LABS: MEAN CORPUSCULAR HEMOGLOBIN 27.6 pg (27.0-34.8); MEAN CORPUSCULAR HGB CONC 32.9 g/dL (32.4-35.8); MEAN CORPUSCULAR VOLUME 83.9 fL (80-100); MEAN PLATELET VOLUME 6.4 fL (7.4-10.4); PLATELET COUNT 551 x10^3/uL (130-400); RED BLOOD COUNT 3.18 x10^6/uL (3.82-5.3); RED CELL DISTRIBUTION WIDTH 16.9 % (9.6-15.2)
[2017-11-20 14:08] LABS: MD YES
[2017-11-20 14:09] LABS: BAND#(MANUAL) 0.59 x10^3/uL; BANDS%(MANUAL) 4 % (0-7); EOS#(MANUAL) 0.15 x10^3/uL (0.0-0.4); EOS% (MANUAL) 1 % (1-7); LYMPH#(MANUAL) 1.62 x10^3/uL (1-3.4); LYMPHS% (MANUAL) 11 % (22-44); METAMYELOCYTES# (MANUAL) 0.15 x10^3/uL (0-0); METAMYELOCYTES% (MANUAL) 1 % (0-1); MONOS#(MANUAL) 1.18 x10^3/uL (0.3-2.7); MONOS% (MANUAL) 8 % (2-9); SEG#(MANUAL) 11.03 x10^3/uL (1.8-6.8); SEGS% (MANUAL) 75 % (42-75)
[2017-11-20 14:10] LABS: <PLATELET ESTIMATE> INCREASED; <PLT MORPHOLOGY> NORMAL PLT MORPH; <RBC MORPHOLOGY> NORMAL
[2017-11-21 01:58] VITALS: BP 120/81
[2017-11-21 05:45] LABS: MEAN CORPUSCULAR HEMOGLOBIN 27.8 pg (27.0-34.8); MEAN CORPUSCULAR HGB CONC 33.2 g/dL (32.4-35.8); MEAN CORPUSCULAR VOLUME 83.8 fL (80-100); MEAN PLATELET VOLUME 6.7 fL (7.4-10.4); PLATELET COUNT 535 x10^3/uL (130-400); RED CELL DISTRIBUTION WIDTH 17.2 % (9.6-15.2)
[2017-11-21 05:46] LABS: ALBUMIN 1.9 g/dL (3.4-5.0); ANION GAP 7 mmol/L (5-15); CALCIUM 8.5 mg/dL (8.5-10.1); CHLORIDE 113 mmol/L (98-107)
[2017-11-21 05:51] LABS: ALANINE AMINOTRANSFERASE 15 U/L (12-78); ALKALINE PHOSPHATASE 198 U/L (45-117); BILIRUBIN,TOTAL 0.5 mg/dL (0.2-1.0); CREATININE 1.18 mg/dL (0.55-1.02); TOTAL PROTEIN 7.7 g/dL (6.4-8.2)
[2017-11-21] MEDS: GUAIFENESIN 200 MG TABLET PO SCH ×4 (05:55→20:36)
[2017-11-21] MEDS: HEPARIN 5,000 UNITS/ML, 1ML SQ SCH ×3 (05:55→20:36)
[2017-11-21] MEDS: LEVOTHYROXINE 100 MCG TABLET PO SCH (05:56)
[2017-11-21 06:10] LABS: BASOPHILS # (AUTO) 0.05 x10^3/uL (0-0.1); BASOPHILS % (AUTO) 0 % (0-1); EOSINOPHILS # (AUTO) 0.56 x10^3/uL (0-0.4); EOSINOPHILS % (AUTO) 4 % (1-7); LYMPHOCYTES # (AUTO) 2.27 x10^3/uL (1-3.4); LYMPHOCYTES % (AUTO) 16 % (22-44); MD SCAN; MONOCYTES # (AUTO) 1.33 x10^3/uL (0.2-0.8); MONOCYTES % (AUTO) 9 % (2-9); NEUTROPHILS # (AUTO) 10.14 x10^3/uL (1.8-6.8); NEUTROPHILS % (AUTO) 71 % (42-75)
[2017-11-21 07:40] VITALS: BP 126/85
[2017-11-21] MEDS: VENLAFAXINE 50MG TABLET PO SCH (07:53)
[2017-11-21] MEDS: MEROPENEM 1 GM in SODIUM CHLORIDE 0.9% 100 ML IV SCH ×2 (07:53→20:36)
[2017-11-21] MEDS: LIOTHYRONINE 5 MCG TABLET PO SCH (07:53)
[2017-11-21] MEDS: CALCITRIOL 0.25 MCG CAPSULE PO SCH (07:53)
[2017-11-21 12:35] VITALS: BP 143/92
[2017-11-21 19:46] VITALS: BP 131/85
[2017-11-22 01:31] VITALS: BP 124/81
[2017-11-22 04:52] LABS: BASOPHILS # (AUTO) 0.04 x10^3/uL (0-0.1); BASOPHILS % (AUTO) 0 % (0-1); EOSINOPHILS # (AUTO) 0.53 x10^3/uL (0-0.4); EOSINOPHILS % (AUTO) 4 % (1-7); LYMPHOCYTES # (AUTO) 2.48 x10^3/uL (1-3.4); LYMPHOCYTES % (AUTO) 19 % (22-44); MD NO; MEAN CORPUSCULAR HEMOGLOBIN 27.6 pg (27.0-34.8); MEAN CORPUSCULAR HGB CONC 32.9 g/dL (32.4-35.8); MEAN CORPUSCULAR VOLUME 84.1 fL (80-100); MEAN PLATELET VOLUME 6.8 fL (7.4-10.4); MONOCYTES # (AUTO) 1.14 x10^3/uL (0.2-0.8); MONOCYTES % (AUTO) 9 % (2-9); NEUTROPHILS # (AUTO) 8.73 x10^3/uL (1.8-6.8); NEUTROPHILS % (AUTO) 68 % (42-75); PLATELET COUNT 549 x10^3/uL (130-400); RED BLOOD COUNT 3.03 x10^6/uL (3.82-5.3); RED CELL DISTRIBUTION WIDTH 16.9 % (9.6-15.2)
[2017-11-22] MEDS: HEPARIN 5,000 UNITS/ML, 1ML SQ SCH ×3 (04:59→19:37)
[2017-11-22] MEDS: LEVOTHYROXINE 100 MCG TABLET PO SCH (04:59)
[2017-11-22] MEDS: GUAIFENESIN 200 MG TABLET PO SCH ×4 (04:59→19:36)
[2017-11-22 05:03] LABS: CALCIUM 8.5 mg/dL (8.5-10.1); CHLORIDE 114 mmol/L (98-107)
[2017-11-22 05:09] LABS: ALANINE AMINOTRANSFERASE 16 U/L (12-78); ALKALINE PHOSPHATASE 197 U/L (45-117); ANION GAP 7 mmol/L (5-15); BILIRUBIN,TOTAL 0.5 mg/dL (0.2-1.0); CREATININE 1.11 mg/dL (0.55-1.02); TOTAL PROTEIN 7.7 g/dL (6.4-8.2)
[2017-11-22 07:55] VITALS: BP 127/79
[2017-11-22] MEDS: MEROPENEM 1 GM in SODIUM CHLORIDE 0.9% 100 ML IV SCH ×2 (08:12→19:36)
[2017-11-22] MEDS: LIOTHYRONINE 5 MCG TABLET PO SCH (08:12)
[2017-11-22] MEDS: VENLAFAXINE 50MG TABLET PO SCH (08:13)
[2017-11-22] MEDS: CALCITRIOL 0.25 MCG CAPSULE PO SCH (08:13)
[2017-11-22 13:16] VITALS: BP 122/73
[2017-11-22 18:33] VITALS: BP 122/82
[2017-11-23 03:41] VITALS: BP 113/74
[2017-11-23 05:18] LABS: BASOPHILS # (AUTO) 0.05 x10^3/uL (0-0.1); BASOPHILS % (AUTO) 0 % (0-1); EOSINOPHILS # (AUTO) 0.42 x10^3/uL (0-0.4); EOSINOPHILS % (AUTO) 3 % (1-7); LYMPHOCYTES # (AUTO) 2.69 x10^3/uL (1-3.4); LYMPHOCYTES % (AUTO) 22 % (22-44); MD NO; MEAN CORPUSCULAR HEMOGLOBIN 28.1 pg (27.0-34.8); MEAN CORPUSCULAR VOLUME 84.9 fL (80-100); MEAN PLATELET VOLUME 7.1 fL (7.4-10.4); MONOCYTES # (AUTO) 1.25 x10^3/uL (0.2-0.8); MONOCYTES % (AUTO) 10 % (2-9); NEUTROPHILS # (AUTO) 7.77 x10^3/uL (1.8-6.8); NEUTROPHILS % (AUTO) 64 % (42-75); PLATELET COUNT 505 x10^3/uL (130-400); RED BLOOD COUNT 3.03 x10^6/uL (3.82-5.3); RED CELL DISTRIBUTION WIDTH 16.9 % (9.6-15.2)
[2017-11-23] MEDS: LEVOTHYROXINE 100 MCG TABLET PO SCH (05:21)
[2017-11-23] MEDS: HEPARIN 5,000 UNITS/ML, 1ML SQ SCH ×3 (05:21→20:05)
[2017-11-23] MEDS: GUAIFENESIN 200 MG TABLET PO SCH ×4 (05:21→20:05)
[2017-11-23 05:26] LABS: ANION GAP 10 mmol/L (5-15); CALCIUM 8.2 mg/dL (8.5-10.1); CHLORIDE 114 mmol/L (98-107)
[2017-11-23 05:30] LABS: ALANINE AMINOTRANSFERASE 15 U/L (12-78); ALKALINE PHOSPHATASE 176 U/L (45-117); BILIRUBIN,TOTAL 0.4 mg/dL (0.2-1.0); CREATININE 1.23 mg/dL (0.55-1.02); TOTAL PROTEIN 7.9 g/dL (6.4-8.2)
[2017-11-23 07:12] VITALS: BP 120/69
[2017-11-23] MEDS: MEROPENEM 1 GM in SODIUM CHLORIDE 0.9% 100 ML IV SCH ×2 (08:18→20:05)
[2017-11-23] MEDS: LIOTHYRONINE 5 MCG TABLET PO SCH (08:18)
[2017-11-23] MEDS: VENLAFAXINE 50MG TABLET PO SCH (08:19)
[2017-11-23] MEDS: CALCITRIOL 0.25 MCG CAPSULE PO SCH (08:19)
[2017-11-23 13:11] VITALS: BP 104/73
[2017-11-23 19:09] VITALS: BP 130/86
[2017-11-24 01:14] VITALS: BP 134/86
[2017-11-24] MEDS: MEROPENEM 1 GM in SODIUM CHLORIDE 0.9% 100 ML IV SCH (03:46)
[2017-11-24] MEDS: HEPARIN 5,000 UNITS/ML, 1ML SQ SCH ×3 (05:00→19:39)
[2017-11-24] MEDS: GUAIFENESIN 200 MG TABLET PO SCH ×4 (05:26→19:39)
[2017-11-24] MEDS: LEVOTHYROXINE 100 MCG TABLET PO SCH (05:29)
[2017-11-24 05:38] LABS: BASOPHILS # (AUTO) 0.06 x10^3/uL (0-0.1); BASOPHILS % (AUTO) 1 % (0-1); EOSINOPHILS # (AUTO) 0.33 x10^3/uL (0-0.4); EOSINOPHILS % (AUTO) 3 % (1-7); LYMPHOCYTES # (AUTO) 2.38 x10^3/uL (1-3.4); LYMPHOCYTES % (AUTO) 21 % (22-44); MD NO; MEAN CORPUSCULAR HEMOGLOBIN 27.7 pg (27.0-34.8); MEAN CORPUSCULAR HGB CONC 32.7 g/dL (32.4-35.8); MEAN CORPUSCULAR VOLUME 84.9 fL (80-100); MEAN PLATELET VOLUME 7.5 fL (7.4-10.4); MONOCYTES # (AUTO) 1.15 x10^3/uL (0.2-0.8); MONOCYTES % (AUTO) 10 % (2-9); NEUTROPHILS # (AUTO) 7.52 x10^3/uL (1.8-6.8); NEUTROPHILS % (AUTO) 66 % (42-75); PLATELET COUNT 515 x10^3/uL (130-400); RED CELL DISTRIBUTION WIDTH 16.4 % (9.6-15.2)
[2017-11-24 05:47] LABS: ALBUMIN 2.1 g/dL (3.4-5.0); ANION GAP 7 mmol/L (5-15); CALCIUM 8.3 mg/dL (8.5-10.1); CHLORIDE 114 mmol/L (98-107)
[2017-11-24 05:51] LABS: ALANINE AMINOTRANSFERASE 17 U/L (12-78); ALKALINE PHOSPHATASE 179 U/L (45-117); BILIRUBIN,TOTAL 0.3 mg/dL (0.2-1.0); CREATININE 1.27 mg/dL (0.55-1.02); TOTAL PROTEIN 7.9 g/dL (6.4-8.2)
[2017-11-24 08:19] VITALS: BP 132/80
[2017-11-24] MEDS: AMOXICILLIN/CLAV 875-125MG TABLET PO SCH ×2 (09:58→19:39)
[2017-11-24] MEDS: LIOTHYRONINE 5 MCG TABLET PO SCH (09:58)
[2017-11-24] MEDS: CALCITRIOL 0.25 MCG CAPSULE PO SCH (09:58)
[2017-11-24] MEDS: VENLAFAXINE 50MG TABLET PO SCH (09:58)
[2017-11-24 14:30] VITALS: BP 120/84
[2017-11-24 19:05] VITALS: BP 136/81
[2017-11-25 01:28] VITALS: BP 124/81
[2017-11-25] MEDS: LEVOTHYROXINE 100 MCG TABLET PO SCH (05:24)
[2017-11-25] MEDS: GUAIFENESIN 200 MG TABLET PO SCH ×4 (05:24→21:24)
[2017-11-25] MEDS: HEPARIN 5,000 UNITS/ML, 1ML SQ SCH ×3 (05:25→21:25)
[2017-11-25 05:47] LABS: BASOPHILS # (AUTO) 0.05 x10^3/uL (0-0.1); BASOPHILS % (AUTO) 1 % (0-1); EOSINOPHILS % (AUTO) 4 % (1-7); LYMPHOCYTES # (AUTO) 2.43 x10^3/uL (1-3.4); LYMPHOCYTES % (AUTO) 22 % (22-44); MD NO; MEAN CORPUSCULAR HEMOGLOBIN 27.1 pg (27.0-34.8); MEAN CORPUSCULAR HGB CONC 32.5 g/dL (32.4-35.8); MEAN CORPUSCULAR VOLUME 83.4 fL (80-100); MEAN PLATELET VOLUME 7.5 fL (7.4-10.4); MONOCYTES # (AUTO) 1.07 x10^3/uL (0.2-0.8); MONOCYTES % (AUTO) 10 % (2-9); NEUTROPHILS # (AUTO) 6.99 x10^3/uL (1.8-6.8); NEUTROPHILS % (AUTO) 64 % (42-75); PLATELET COUNT 511 x10^3/uL (130-400); RED BLOOD COUNT 3.13 x10^6/uL (3.82-5.3); RED CELL DISTRIBUTION WIDTH 16.6 % (9.6-15.2)
[2017-11-25 05:54] LABS: ANION GAP 7 mmol/L (5-15); CALCIUM 8.5 mg/dL (8.5-10.1); CHLORIDE 114 mmol/L (98-107)
[2017-11-25 05:56] LABS: CREATININE 1.22 mg/dL (0.55-1.02)
[2017-11-25 06:52] VITALS: BP 128/84
[2017-11-25] MEDS: ERGOCALCIFEROL 50,000 UNIT CAPSULE PO SCH (09:00)
[2017-11-25] MEDS: CALCITRIOL 0.25 MCG CAPSULE PO SCH (11:18)
[2017-11-25] MEDS: AMOXICILLIN/CLAV 875-125MG TABLET PO SCH ×2 (11:18→21:24)
[2017-11-25] MEDS: VENLAFAXINE 50MG TABLET PO SCH (11:18)
[2017-11-25] MEDS: LIOTHYRONINE 5 MCG TABLET PO SCH (11:19)
[2017-11-25 13:15] VITALS: BP 103/70
[2017-11-25 19:47] VITALS: BP 117/81
[2017-11-26 00:54] VITALS: BP 107/73
[2017-11-26] MEDS: LEVOTHYROXINE 100 MCG TABLET PO SCH (05:36)
[2017-11-26] MEDS: GUAIFENESIN 200 MG TABLET PO SCH ×4 (05:36→20:54)
[2017-11-26] MEDS: HEPARIN 5,000 UNITS/ML, 1ML SQ SCH ×3 (05:36→20:54)
[2017-11-26 05:37] LABS: ALBUMIN 2.2 g/dL (3.4-5.0); ANION GAP 8 mmol/L (5-15); CALCIUM 8.3 mg/dL (8.5-10.1); CHLORIDE 114 mmol/L (98-107)
[2017-11-26 05:40] LABS: ALANINE AMINOTRANSFERASE 16 U/L (12-78); ALKALINE PHOSPHATASE 171 U/L (45-117); BILIRUBIN,TOTAL 0.4 mg/dL (0.2-1.0); CREATININE 1.24 mg/dL (0.55-1.02); TOTAL PROTEIN 8.1 g/dL (6.4-8.2)
[2017-11-26 05:49] LABS: BASOPHILS # (AUTO) 0.09 x10^3/uL (0-0.1); BASOPHILS % (AUTO) 1 % (0-1); EOSINOPHILS # (AUTO) 0.41 x10^3/uL (0-0.4); EOSINOPHILS % (AUTO) 4 % (1-7); LYMPHOCYTES # (AUTO) 2.84 x10^3/uL (1-3.4); LYMPHOCYTES % (AUTO) 28 % (22-44); MD NO; MEAN CORPUSCULAR HEMOGLOBIN 26.8 pg (27.0-34.8); MEAN CORPUSCULAR VOLUME 83.8 fL (80-100); MEAN PLATELET VOLUME 7.8 fL (7.4-10.4); MONOCYTES # (AUTO) 1.07 x10^3/uL (0.2-0.8); MONOCYTES % (AUTO) 10 % (2-9); NEUTROPHILS # (AUTO) 5.88 x10^3/uL (1.8-6.8); NEUTROPHILS % (AUTO) 57 % (42-75); PLATELET COUNT 503 x10^3/uL (130-400); RED BLOOD COUNT 3.12 x10^6/uL (3.82-5.3); RED CELL DISTRIBUTION WIDTH 16.8 % (9.6-15.2)
[2017-11-26 08:00] VITALS: BP 117/81
[2017-11-26] MEDS: LIOTHYRONINE 5 MCG TABLET PO SCH (08:58)
[2017-11-26] MEDS: VENLAFAXINE 50MG TABLET PO SCH (08:59)
[2017-11-26] MEDS: CALCITRIOL 0.25 MCG CAPSULE PO SCH (09:00)
[2017-11-26] MEDS: AMOXICILLIN/CLAV 875-125MG TABLET PO SCH ×2 (09:01→20:54)
[2017-11-26 14:00] VITALS: BP 103/70
[2017-11-26 20:11] VITALS: BP 110/72
[2017-11-27 00:48] VITALS: BP 130/86
[2017-11-27] MEDS: HEPARIN 5,000 UNITS/ML, 1ML SQ SCH ×3 (05:11→21:07)
[2017-11-27] MEDS: GUAIFENESIN 200 MG TABLET PO SCH ×4 (05:11→21:07)
[2017-11-27] MEDS: LEVOTHYROXINE 100 MCG TABLET PO SCH (05:12)
[2017-11-27 05:45] LABS: BASOPHILS # (AUTO) 0.08 x10^3/uL (0-0.1); BASOPHILS % (AUTO) 1 % (0-1); EOSINOPHILS # (AUTO) 0.44 x10^3/uL (0-0.4); EOSINOPHILS % (AUTO) 4 % (1-7); LYMPHOCYTES # (AUTO) 1.23 x10^3/uL (1-3.4); LYMPHOCYTES % (AUTO) 12 % (22-44); MD NO; MEAN CORPUSCULAR HEMOGLOBIN 27.7 pg (27.0-34.8); MEAN CORPUSCULAR VOLUME 83.8 fL (80-100); MEAN PLATELET VOLUME 7.7 fL (7.4-10.4); MONOCYTES # (AUTO) 0.98 x10^3/uL (0.2-0.8); MONOCYTES % (AUTO) 10 % (2-9); NEUTROPHILS # (AUTO) 7.28 x10^3/uL (1.8-6.8); NEUTROPHILS % (AUTO) 73 % (42-75); PLATELET COUNT 496 x10^3/uL (130-400); RED BLOOD COUNT 3.09 x10^6/uL (3.82-5.3); RED CELL DISTRIBUTION WIDTH 16.5 % (9.6-15.2)
[2017-11-27 05:52] LABS: CHLORIDE 114 mmol/L (98-107)
[2017-11-27 06:18] LABS: ALANINE AMINOTRANSFERASE 16 U/L (12-78); ALBUMIN 2.3 g/dL (3.4-5.0); ALKALINE PHOSPHATASE 185 U/L (45-117); ANION GAP 10 mmol/L (5-15); BILIRUBIN,TOTAL 0.4 mg/dL (0.2-1.0); CALCIUM 8.7 mg/dL (8.5-10.1); CREATININE 1.18 mg/dL (0.55-1.02); TOTAL PROTEIN 8.2 g/dL (6.4-8.2)
[2017-11-27 07:57] VITALS: BP 110/74
[2017-11-27] MEDS: AMOXICILLIN/CLAV 875-125MG TABLET PO SCH ×2 (08:13→21:07)
[2017-11-27] MEDS: VENLAFAXINE 50MG TABLET PO SCH (08:13)
[2017-11-27] MEDS: CALCITRIOL 0.25 MCG CAPSULE PO SCH (08:13)
[2017-11-27] MEDS: LIOTHYRONINE 5 MCG TABLET PO SCH (08:14)
[2017-11-27 12:56] VITALS: BP 128/81
[2017-11-27 19:21] VITALS: BP 112/72
[2017-11-28 01:50] VITALS: BP 120/81
[2017-11-28 05:18] LABS: BASOPHILS % (AUTO) 1 % (0-1); EOSINOPHILS # (AUTO) 0.43 x10^3/uL (0-0.4); EOSINOPHILS % (AUTO) 4 % (1-7); LYMPHOCYTES # (AUTO) 2.36 x10^3/uL (1-3.4); LYMPHOCYTES % (AUTO) 23 % (22-44); MD NO; MEAN CORPUSCULAR HEMOGLOBIN 27.5 pg (27.0-34.8); MEAN CORPUSCULAR HGB CONC 32.4 g/dL (32.4-35.8); MEAN CORPUSCULAR VOLUME 84.8 fL (80-100); MONOCYTES # (AUTO) 1.13 x10^3/uL (0.2-0.8); MONOCYTES % (AUTO) 11 % (2-9); NEUTROPHILS # (AUTO) 6.42 x10^3/uL (1.8-6.8); NEUTROPHILS % (AUTO) 61 % (42-75); PLATELET COUNT 491 x10^3/uL (130-400); RED BLOOD COUNT 3.16 x10^6/uL (3.82-5.3); RED CELL DISTRIBUTION WIDTH 16.4 % (9.6-15.2)
[2017-11-28 05:26] LABS: ALBUMIN 2.3 g/dL (3.4-5.0); ANION GAP 7 mmol/L (5-15); CALCIUM 8.2 mg/dL (8.5-10.1); CHLORIDE 115 mmol/L (98-107)
[2017-11-28 05:30] LABS: ALANINE AMINOTRANSFERASE 19 U/L (12-78); ALKALINE PHOSPHATASE 205 U/L (45-117); BILIRUBIN,TOTAL 0.4 mg/dL (0.2-1.0); CREATININE 1.31 mg/dL (0.55-1.02); TOTAL PROTEIN 8.3 g/dL (6.4-8.2)
[2017-11-28] MEDS: HEPARIN 5,000 UNITS/ML, 1ML SQ SCH ×3 (05:40→20:59)
[2017-11-28] MEDS: GUAIFENESIN 200 MG TABLET PO SCH ×4 (05:40→20:59)
[2017-11-28] MEDS: LEVOTHYROXINE 100 MCG TABLET PO SCH (05:41)
[2017-11-28 07:42] VITALS: BP 106/73
[2017-11-28] MEDS: AMOXICILLIN/CLAV 875-125MG TABLET PO SCH ×2 (08:09→20:59)
[2017-11-28] MEDS: CALCITRIOL 0.25 MCG CAPSULE PO SCH (08:09)
[2017-11-28] MEDS: VENLAFAXINE 50MG TABLET PO SCH (08:09)
[2017-11-28] MEDS: LIOTHYRONINE 5 MCG TABLET PO SCH (08:10)
[2017-11-28] MEDS: DOXYCYCLINE 100MG TABLET PO SCH ×2 (08:10→20:59)
[2017-11-28] MEDS ORDERED: GUAI200T3 PO (11:56)
[2017-11-28] MEDS ORDERED: DOXY100T PO (11:56)
[2017-11-28] MEDS ORDERED: AMOX1TAB12 PO (11:56)
[2017-11-28] MEDS ORDERED: LOPERAMIDE 2 MG CAPSULE PO PRN (15:00)
[2017-11-28] MEDS ORDERED: METOCLOPRAMIDE 10MG TABLET PO SCH (15:00)
[2017-11-28 20:29] VITALS: BP 94/64
[2017-11-28] MEDS: MIDODRINE 5 MG TABLET PO SCH (21:01)
[2017-11-29 02:33] VITALS: BP 108/71
[2017-11-29 05:19] LABS: BASOPHILS # (AUTO) 0.08 x10^3/uL (0-0.1); BASOPHILS % (AUTO) 1 % (0-1); EOSINOPHILS % (AUTO) 4 % (1-7); LYMPHOCYTES # (AUTO) 2.13 x10^3/uL (1-3.4); LYMPHOCYTES % (AUTO) 22 % (22-44); MD NO; MEAN CORPUSCULAR HEMOGLOBIN 27.4 pg (27.0-34.8); MEAN CORPUSCULAR HGB CONC 32.7 g/dL (32.4-35.8); MEAN PLATELET VOLUME 7.9 fL (7.4-10.4); MONOCYTES # (AUTO) 1.11 x10^3/uL (0.2-0.8); MONOCYTES % (AUTO) 12 % (2-9); NEUTROPHILS # (AUTO) 5.93 x10^3/uL (1.8-6.8); NEUTROPHILS % (AUTO) 61 % (42-75); PLATELET COUNT 484 x10^3/uL (130-400); RED BLOOD COUNT 3.24 x10^6/uL (3.82-5.3); RED CELL DISTRIBUTION WIDTH 16.2 % (9.6-15.2)
[2017-11-29] MEDS: LEVOTHYROXINE 100 MCG TABLET PO SCH (05:30)
[2017-11-29] MEDS: HEPARIN 5,000 UNITS/ML, 1ML SQ SCH ×3 (05:30→21:03)
[2017-11-29] MEDS: GUAIFENESIN 200 MG TABLET PO SCH ×4 (05:30→21:03)
[2017-11-29 07:42] VITALS: BP 114/78
[2017-11-29] MEDS: ALLOPURINOL 100 MG TABLET PO SCH (07:45)
[2017-11-29] MEDS: AMOXICILLIN/CLAV 875-125MG TABLET PO SCH ×2 (07:45→21:03)
[2017-11-29] MEDS: LIOTHYRONINE 5 MCG TABLET PO SCH (07:45)
[2017-11-29] MEDS: VENLAFAXINE 50MG TABLET PO SCH (07:46)
[2017-11-29] MEDS: MIDODRINE 5 MG TABLET PO SCH ×2 (07:46→21:03)
[2017-11-29] MEDS: DOXYCYCLINE 100MG TABLET PO SCH ×2 (07:47→21:03)
[2017-11-29] MEDS: CALCITRIOL 0.25 MCG CAPSULE PO SCH (07:47)
[2017-11-29] MEDS: PANTOPROZOLE 40MG TABLET PO SCH (07:47)
[2017-11-29] MEDS: MULTIVITAMINS/MINERALS TABLET PO SCH (11:07)
[2017-11-29 14:40] VITALS: BP 104/69
[2017-11-29 20:16] VITALS: BP 91/61
[2017-11-30 02:43] VITALS: BP 99/68
[2017-11-30 04:59] LABS: BASOPHILS # (AUTO) 0.12 x10^3/uL (0-0.1); BASOPHILS % (AUTO) 1 % (0-1); EOSINOPHILS # (AUTO) 0.44 x10^3/uL (0-0.4); EOSINOPHILS % (AUTO) 4 % (1-7); LYMPHOCYTES # (AUTO) 2.42 x10^3/uL (1-3.4); LYMPHOCYTES % (AUTO) 24 % (22-44); MD NO; MEAN CORPUSCULAR HEMOGLOBIN 27.1 pg (27.0-34.8); MEAN CORPUSCULAR HGB CONC 32.6 g/dL (32.4-35.8); MEAN CORPUSCULAR VOLUME 83.2 fL (80-100); MEAN PLATELET VOLUME 8.2 fL (7.4-10.4); MONOCYTES # (AUTO) 1.14 x10^3/uL (0.2-0.8); MONOCYTES % (AUTO) 11 % (2-9); NEUTROPHILS # (AUTO) 5.97 x10^3/uL (1.8-6.8); NEUTROPHILS % (AUTO) 59 % (42-75); PLATELET COUNT 485 x10^3/uL (130-400); RED BLOOD COUNT 3.22 x10^6/uL (3.82-5.3); RED CELL DISTRIBUTION WIDTH 16.7 % (9.6-15.2)
[2017-11-30 05:09] LABS: CHLORIDE 114 mmol/L (98-107)
[2017-11-30 05:19] LABS: ALANINE AMINOTRANSFERASE 24 U/L (12-78); ALBUMIN 2.4 g/dL (3.4-5.0); ALKALINE PHOSPHATASE 233 U/L (45-117); ANION GAP 10 mmol/L (5-15); BILIRUBIN,TOTAL 0.5 mg/dL (0.2-1.0); CALCIUM 8.5 mg/dL (8.5-10.1); CREATININE 1.76 mg/dL (0.55-1.02); TOTAL PROTEIN 8.3 g/dL (6.4-8.2)
[2017-11-30] MEDS: LEVOTHYROXINE 100 MCG TABLET PO SCH (05:30)
[2017-11-30] MEDS: HEPARIN 5,000 UNITS/ML, 1ML SQ SCH ×3 (05:30→21:08)
[2017-11-30] MEDS: GUAIFENESIN 200 MG TABLET PO SCH ×4 (05:30→21:08)
[2017-11-30 07:14] VITALS: BP 117/79
[2017-11-30] MEDS: MIDODRINE 5 MG TABLET PO SCH ×2 (09:42→21:08)
[2017-11-30] MEDS: DOXYCYCLINE 100MG TABLET PO SCH ×2 (09:42→21:09)
[2017-11-30] MEDS: ALLOPURINOL 100 MG TABLET PO SCH (09:42)
[2017-11-30] MEDS: PANTOPROZOLE 40MG TABLET PO SCH (09:42)
[2017-11-30] MEDS: AMOXICILLIN/CLAV 875-125MG TABLET PO SCH ×2 (09:42→21:08)
[2017-11-30] MEDS: VENLAFAXINE 50MG TABLET PO SCH (09:42)
[2017-11-30] MEDS: MULTIVITAMINS/MINERALS TABLET PO SCH (09:42)
[2017-11-30] MEDS: CALCITRIOL 0.25 MCG CAPSULE PO SCH (09:42)
[2017-11-30] MEDS: LIOTHYRONINE 5 MCG TABLET PO SCH (09:43)
[2017-11-30 12:51] VITALS: BP 128/83
[2017-11-30] MEDS: SODIUM BICARBONATE 650 MG TABLET PO SCH ×2 (15:05→21:09)
[2017-11-30 20:00] VITALS: BP 102/69
[2017-12-01 02:47] VITALS: BP 97/65
[2017-12-01] MEDS: GUAIFENESIN 200 MG TABLET PO SCH ×4 (05:21→22:02)
[2017-12-01] MEDS: HEPARIN 5,000 UNITS/ML, 1ML SQ SCH ×3 (05:21→22:02)
[2017-12-01] MEDS: LEVOTHYROXINE 100 MCG TABLET PO SCH (05:22)
[2017-12-01 06:06] LABS: BASOPHILS # (AUTO) 0.09 x10^3/uL (0-0.1); BASOPHILS % (AUTO) 1 % (0-1); EOSINOPHILS # (AUTO) 0.45 x10^3/uL (0-0.4); EOSINOPHILS % (AUTO) 5 % (1-7); LYMPHOCYTES # (AUTO) 2.25 x10^3/uL (1-3.4); LYMPHOCYTES % (AUTO) 23 % (22-44); MD NO; MEAN CORPUSCULAR HEMOGLOBIN 27.6 pg (27.0-34.8); MEAN CORPUSCULAR HGB CONC 32.9 g/dL (32.4-35.8); MEAN CORPUSCULAR VOLUME 83.9 fL (80-100); MEAN PLATELET VOLUME 8.2 fL (7.4-10.4); MONOCYTES # (AUTO) 1.01 x10^3/uL (0.2-0.8); MONOCYTES % (AUTO) 10 % (2-9); NEUTROPHILS # (AUTO) 5.89 x10^3/uL (1.8-6.8); NEUTROPHILS % (AUTO) 61 % (42-75); PLATELET COUNT 504 x10^3/uL (130-400); RED BLOOD COUNT 3.29 x10^6/uL (3.82-5.3); RED CELL DISTRIBUTION WIDTH 16.7 % (9.6-15.2)
[2017-12-01 06:20] LABS: ANION GAP 7 mmol/L (5-15); CALCIUM 8.7 mg/dL (8.5-10.1); CHLORIDE 115 mmol/L (98-107)
[2017-12-01 06:23] LABS: CREATININE 1.83 mg/dL (0.55-1.02)
[2017-12-01 07:27] VITALS: BP 113/79
[2017-12-01] MEDS: LIOTHYRONINE 5 MCG TABLET PO SCH (09:01)
[2017-12-01] MEDS: SODIUM BICARBONATE 650 MG TABLET PO SCH ×2 (09:01→22:02)
[2017-12-01] MEDS: CALCITRIOL 0.25 MCG CAPSULE PO SCH (09:01)
[2017-12-01] MEDS: VENLAFAXINE 50MG TABLET PO SCH (09:01)
[2017-12-01] MEDS: ALLOPURINOL 100 MG TABLET PO SCH (09:01)
[2017-12-01] MEDS: DOXYCYCLINE 100MG TABLET PO SCH ×2 (09:01→22:02)
[2017-12-01] MEDS: PANTOPROZOLE 40MG TABLET PO SCH (09:01)
[2017-12-01] MEDS: MIDODRINE 5 MG TABLET PO SCH ×3 (09:01→22:03)
[2017-12-01] MEDS: AMOXICILLIN/CLAV 875-125MG TABLET PO SCH ×2 (09:01→22:03)
[2017-12-01] MEDS ORDERED: MAGNESIUM SULFATE PMX 2GM/50ML 50 ML IV ONE (11:00)
[2017-12-01] MEDS: MULTIVITAMINS/MINERALS TABLET PO SCH (12:20)
[2017-12-01 13:00] VITALS: BP 80/54
[2017-12-01 13:43] LABS: MICROSCOPIC INDICATED
[2017-12-01 13:44] LABS: CULTURE INDICATED? YES
[2017-12-01] MEDS ORDERED: METOCLOPRAMIDE 10MG TABLET PO PRN (16:30)
[2017-12-01 21:00] VITALS: BP 105/71
[2017-12-02 03:35] VITALS: BP 92/63
[2017-12-02] MEDS: GUAIFENESIN 200 MG TABLET PO SCH ×4 (06:17→20:22)
[2017-12-02] MEDS: HEPARIN 5,000 UNITS/ML, 1ML SQ SCH ×3 (06:17→20:22)
[2017-12-02] MEDS: LEVOTHYROXINE 100 MCG TABLET PO SCH (06:17)
[2017-12-02 07:08] LABS: CALCIUM 8.8 mg/dL (8.5-10.1); CHLORIDE 115 mmol/L (98-107); CREATININE 1.95 mg/dL (0.55-1.02)
[2017-12-02 07:10] LABS: ANION GAP 8 mmol/L (5-15)
[2017-12-02] MEDS: ERGOCALCIFEROL 50,000 UNIT CAPSULE PO SCH (08:49)
[2017-12-02] MEDS: CALCITRIOL 0.25 MCG CAPSULE PO SCH (08:49)
[2017-12-02] MEDS: AMOXICILLIN/CLAV 875-125MG TABLET PO SCH ×2 (08:49→20:23)
[2017-12-02] MEDS: PANTOPROZOLE 40MG TABLET PO SCH (08:50)
[2017-12-02] MEDS: VENLAFAXINE 50MG TABLET PO SCH (08:50)
[2017-12-02] MEDS: SODIUM BICARBONATE 650 MG TABLET PO SCH ×2 (08:50→20:22)
[2017-12-02] MEDS: ALLOPURINOL 100 MG TABLET PO SCH (08:50)
[2017-12-02] MEDS: DOXYCYCLINE 100MG TABLET PO SCH ×2 (08:50→20:22)
[2017-12-02] MEDS: LIOTHYRONINE 5 MCG TABLET PO SCH (08:50)
[2017-12-02] MEDS: MIDODRINE 5 MG TABLET PO SCH ×3 (08:50→20:23)
[2017-12-02 10:24] VITALS: BP 117/80
[2017-12-02] MEDS ORDERED: MAGNESIUM SULFATE PMX 2GM/50ML 50 ML IV ONE (11:00)
[2017-12-02] MEDS: MULTIVITAMINS/MINERALS TABLET PO SCH (11:55)
[2017-12-02 13:04] VITALS: BP 95/66
[2017-12-02] MEDS: SODIUM CHLORIDE 0.9% 1,000 ML IV SCH ×2 (14:27→21:37)
[2017-12-02 20:19] VITALS: BP 104/62
[2017-12-03 02:15] VITALS: BP 120/82
[2017-12-03] MEDS: SODIUM CHLORIDE 0.9% 1,000 ML IV SCH (05:16)
[2017-12-03] MEDS: GUAIFENESIN 200 MG TABLET PO SCH ×4 (05:16→20:45)
[2017-12-03] MEDS: HEPARIN 5,000 UNITS/ML, 1ML SQ SCH ×3 (05:17→20:51)
[2017-12-03] MEDS: LEVOTHYROXINE 100 MCG TABLET PO SCH (05:17)
[2017-12-03 06:00] LABS: BASOPHILS # (AUTO) 0.08 x10^3/uL (0-0.1); BASOPHILS % (AUTO) 1 % (0-1); EOSINOPHILS # (AUTO) 0.49 x10^3/uL (0-0.4); EOSINOPHILS % (AUTO) 5 % (1-7); LYMPHOCYTES # (AUTO) 2.51 x10^3/uL (1-3.4); LYMPHOCYTES % (AUTO) 26 % (22-44); MD NO; MEAN CORPUSCULAR HEMOGLOBIN 26.8 pg (27.0-34.8); MEAN CORPUSCULAR VOLUME 83.7 fL (80-100); MEAN PLATELET VOLUME 8.4 fL (7.4-10.4); MONOCYTES # (AUTO) 0.92 x10^3/uL (0.2-0.8); MONOCYTES % (AUTO) 10 % (2-9); NEUTROPHILS # (AUTO) 5.61 x10^3/uL (1.8-6.8); NEUTROPHILS % (AUTO) 58 % (42-75); PLATELET COUNT 459 x10^3/uL (130-400); RED CELL DISTRIBUTION WIDTH 16.3 % (9.6-15.2)
[2017-12-03 06:03] LABS: ANION GAP 7 mmol/L (5-15); CALCIUM 8.3 mg/dL (8.5-10.1); CHLORIDE 117 mmol/L (98-107)
[2017-12-03 06:05] LABS: CREATININE 1.85 mg/dL (0.55-1.02)
[2017-12-03 08:58] VITALS: BP 113/76
[2017-12-03] MEDS: LIOTHYRONINE 5 MCG TABLET PO SCH (09:00)
[2017-12-03] MEDS: VENLAFAXINE 50MG TABLET PO SCH (09:20)
[2017-12-03] MEDS: PANTOPROZOLE 40MG TABLET PO SCH (09:20)
[2017-12-03] MEDS: SODIUM BICARBONATE 650 MG TABLET PO SCH ×2 (09:20→20:45)
[2017-12-03] MEDS: CALCITRIOL 0.25 MCG CAPSULE PO SCH (09:20)
[2017-12-03] MEDS: MIDODRINE 5 MG TABLET PO SCH ×3 (09:20→20:45)
[2017-12-03] MEDS: AMOXICILLIN/CLAV 875-125MG TABLET PO SCH ×2 (09:21→20:45)
[2017-12-03] MEDS: ALLOPURINOL 100 MG TABLET PO SCH (09:21)
[2017-12-03] MEDS: DOXYCYCLINE 100MG TABLET PO SCH ×2 (09:21→20:45)
[2017-12-03] MEDS: MULTIVITAMINS/MINERALS TABLET PO SCH (11:37)
[2017-12-03 15:20] VITALS: BP 121/72
[2017-12-03 19:15] VITALS: BP 118/79
[2017-12-04 01:17] VITALS: BP_SYST 106; BP_SYST 125; BP_DIAS 58; BP_DIAS 81
[2017-12-04] MEDS: HEPARIN 5,000 UNITS/ML, 1ML SQ SCH ×2 (05:00→17:35)
[2017-12-04] MEDS: GUAIFENESIN 200 MG TABLET PO SCH ×4 (05:01→20:36)
[2017-12-04] MEDS: LEVOTHYROXINE 100 MCG TABLET PO SCH (05:01)
[2017-12-04 05:57] LABS: BASOPHILS # (AUTO) 0.09 x10^3/uL (0-0.1); BASOPHILS % (AUTO) 1 % (0-1); EOSINOPHILS % (AUTO) 5 % (1-7); LYMPHOCYTES # (AUTO) 2.61 x10^3/uL (1-3.4); LYMPHOCYTES % (AUTO) 27 % (22-44); MD NO; MEAN CORPUSCULAR HEMOGLOBIN 27.8 pg (27.0-34.8); MEAN CORPUSCULAR HGB CONC 33.1 g/dL (32.4-35.8); MEAN CORPUSCULAR VOLUME 83.9 fL (80-100); MEAN PLATELET VOLUME 8.5 fL (7.4-10.4); MONOCYTES # (AUTO) 0.96 x10^3/uL (0.2-0.8); MONOCYTES % (AUTO) 10 % (2-9); NEUTROPHILS % (AUTO) 57 % (42-75); PLATELET COUNT 493 x10^3/uL (130-400); RED CELL DISTRIBUTION WIDTH 16.2 % (9.6-15.2)
[2017-12-04 06:03] LABS: ALBUMIN 2.4 g/dL (3.4-5.0); ANION GAP 6 mmol/L (5-15); CALCIUM 8.7 mg/dL (8.5-10.1); CHLORIDE 118 mmol/L (98-107)
[2017-12-04 06:05] LABS: CREATININE 1.61 mg/dL (0.55-1.02)
[2017-12-04 07:00] VITALS: BP 102/63
[2017-12-04] MEDS: VENLAFAXINE 50MG TABLET PO SCH (08:51)
[2017-12-04] MEDS: PANTOPROZOLE 40MG TABLET PO SCH (08:52)
[2017-12-04] MEDS: MIDODRINE 5 MG TABLET PO SCH (08:52)
[2017-12-04] MEDS: CALCITRIOL 0.25 MCG CAPSULE PO SCH (08:52)
[2017-12-04] MEDS: SODIUM BICARBONATE 650 MG TABLET PO SCH ×2 (08:52→20:36)
[2017-12-04] MEDS: ALLOPURINOL 100 MG TABLET PO SCH (08:53)
[2017-12-04] MEDS: LIOTHYRONINE 5 MCG TABLET PO SCH (08:53)
[2017-12-04] MEDS ORDERED: SODIUM CHLORIDE 0.45%, 1,000ML IVBOLUS SCH (10:00)
[2017-12-04] MEDS ORDERED: PHARMACY MAY ADJ FOR RENAL FX MC PRN (11:00)
[2017-12-04] MEDS: DOXYCYCLINE 100MG TABLET PO SCH ×2 (11:18→20:36)
[2017-12-04] MEDS: MULTIVITAMINS/MINERALS TABLET PO SCH (11:21)
[2017-12-04] MEDS: AMPICILLIN/SULBACTAM 3 GM in SODIUM CHLORIDE 0.9% 100 ML IV SCH ×3 (11:23→22:58)
[2017-12-04 15:57] VITALS: BP 119/77
[2017-12-04 20:11] VITALS: BP 119/73
[2017-12-05] MEDS: HEPARIN 5,000 UNITS/ML, 1ML SQ SCH ×3 (01:38→17:11)
[2017-12-05 02:00] VITALS: BP 106/74
[2017-12-05] MEDS: GUAIFENESIN 200 MG TABLET PO SCH ×4 (05:10→20:15)
[2017-12-05] MEDS: AMPICILLIN/SULBACTAM 3 GM in SODIUM CHLORIDE 0.9% 100 ML IV SCH ×4 (05:10→22:36)
[2017-12-05] MEDS: LEVOTHYROXINE 100 MCG TABLET PO SCH (05:11)
[2017-12-05 05:52] LABS: ALBUMIN 2.4 g/dL (3.4-5.0); ANION GAP 6 mmol/L (5-15); CALCIUM 8.6 mg/dL (8.5-10.1); CHLORIDE 116 mmol/L (98-107); CREATININE 1.59 mg/dL (0.55-1.02)
[2017-12-05 06:42] VITALS: BP 99/65
[2017-12-05 06:53] LABS: BASOPHILS # (AUTO) 0.08 x10^3/uL (0-0.1); BASOPHILS % (AUTO) 1 % (0-1); EOSINOPHILS # (AUTO) 0.54 x10^3/uL (0-0.4); EOSINOPHILS % (AUTO) 7 % (1-7); LYMPHOCYTES # (AUTO) 2.02 x10^3/uL (1-3.4); LYMPHOCYTES % (AUTO) 25 % (22-44); MD NO; MEAN CORPUSCULAR HEMOGLOBIN 27.5 pg (27.0-34.8); MEAN CORPUSCULAR HGB CONC 32.6 g/dL (32.4-35.8); MEAN CORPUSCULAR VOLUME 84.3 fL (80-100); MEAN PLATELET VOLUME 7.7 fL (7.4-10.4); MONOCYTES # (AUTO) 0.85 x10^3/uL (0.2-0.8); MONOCYTES % (AUTO) 11 % (2-9); NEUTROPHILS # (AUTO) 4.56 x10^3/uL (1.8-6.8); NEUTROPHILS % (AUTO) 57 % (42-75); PLATELET COUNT 422 x10^3/uL (130-400); RED CELL DISTRIBUTION WIDTH 16.1 % (9.6-15.2)
[2017-12-05] MEDS: SODIUM BICARBONATE 650 MG TABLET PO SCH ×2 (09:00→20:15)
[2017-12-05] MEDS: LIOTHYRONINE 5 MCG TABLET PO SCH (09:00)
[2017-12-05] MEDS: PANTOPROZOLE 40MG TABLET PO SCH (09:01)
[2017-12-05] MEDS: CALCITRIOL 0.25 MCG CAPSULE PO SCH (09:01)
[2017-12-05] MEDS: ALLOPURINOL 100 MG TABLET PO SCH (09:01)
[2017-12-05] MEDS: VENLAFAXINE 50MG TABLET PO SCH (09:01)
[2017-12-05] MEDS: DOXYCYCLINE 100MG TABLET PO SCH ×2 (09:02→20:15)
[2017-12-05] MEDS: MULTIVITAMINS/MINERALS TABLET PO SCH (11:21)
[2017-12-05 12:19] VITALS: BP 111/71
[2017-12-05 19:51] VITALS: BP 114/71
[2017-12-06 01:20] VITALS: BP 114/71
[2017-12-06] MEDS: HEPARIN 5,000 UNITS/ML, 1ML SQ SCH ×3 (01:46→16:48)
[2017-12-06] MEDS: GUAIFENESIN 200 MG TABLET PO SCH ×4 (05:12→20:28)
[2017-12-06] MEDS: LEVOTHYROXINE 100 MCG TABLET PO SCH (05:13)
[2017-12-06] MEDS: AMPICILLIN/SULBACTAM 3 GM in SODIUM CHLORIDE 0.9% 100 ML IV SCH ×4 (05:14→22:47)
[2017-12-06 07:28] VITALS: BP 100/67
[2017-12-06] MEDS: CALCITRIOL 0.25 MCG CAPSULE PO SCH (08:15)
[2017-12-06] MEDS: DOXYCYCLINE 100MG TABLET PO SCH ×2 (08:16→20:28)
[2017-12-06] MEDS: VENLAFAXINE 50MG TABLET PO SCH (08:16)
[2017-12-06] MEDS: PANTOPROZOLE 40MG TABLET PO SCH (08:16)
[2017-12-06] MEDS: SODIUM BICARBONATE 650 MG TABLET PO SCH ×2 (08:16→20:28)
[2017-12-06] MEDS: ALLOPURINOL 100 MG TABLET PO SCH (08:16)
[2017-12-06] MEDS: LIOTHYRONINE 5 MCG TABLET PO SCH (08:18)
[2017-12-06 08:35] LABS: BASOPHILS # (AUTO) 0.05 x10^3/uL (0-0.1); BASOPHILS % (AUTO) 1 % (0-1); EOSINOPHILS % (AUTO) 7 % (1-7); LYMPHOCYTES # (AUTO) 1.78 x10^3/uL (1-3.4); LYMPHOCYTES % (AUTO) 26 % (22-44); MD NO; MEAN CORPUSCULAR HEMOGLOBIN 27.1 pg (27.0-34.8); MEAN CORPUSCULAR HGB CONC 32.8 g/dL (32.4-35.8); MEAN CORPUSCULAR VOLUME 82.6 fL (80-100); MEAN PLATELET VOLUME 7.4 fL (7.4-10.4); MONOCYTES # (AUTO) 0.58 x10^3/uL (0.2-0.8); MONOCYTES % (AUTO) 8 % (2-9); NEUTROPHILS # (AUTO) 4.02 x10^3/uL (1.8-6.8); NEUTROPHILS % (AUTO) 58 % (42-75); PLATELET COUNT 421 x10^3/uL (130-400); RED BLOOD COUNT 3.04 x10^6/uL (3.82-5.3); RED CELL DISTRIBUTION WIDTH 16.4 % (9.6-15.2)
[2017-12-06 08:43] LABS: ALBUMIN 2.5 g/dL (3.4-5.0); ANION GAP 8 mmol/L (5-15); CALCIUM 8.6 mg/dL (8.5-10.1); CHLORIDE 116 mmol/L (98-107); CREATININE 1.58 mg/dL (0.55-1.02)
[2017-12-06] MEDS ORDERED: MAGNESIUM SULFATE 4 GM in SODIUM CHLORIDE 0.9% 100 ML IV ONE (10:00)
[2017-12-06] MEDS ORDERED: MAGNESIUM SULFATE PMX 4GM/100M 100 ML IVPB ONE (10:00)
[2017-12-06] MEDS: MULTIVITAMINS/MINERALS TABLET PO SCH (10:43)
[2017-12-06 12:11] VITALS: BP 117/77
[2017-12-06 19:33] VITALS: BP 123/75
[2017-12-06] MEDS: D5%-0.45% NACL 1,000 ML IV SCH (20:40)
[2017-12-07 01:54] VITALS: BP 119/80
[2017-12-07] MEDS: AMPICILLIN/SULBACTAM 3 GM in SODIUM CHLORIDE 0.9% 100 ML IV SCH ×3 (04:40→19:34)
[2017-12-07] MEDS: GUAIFENESIN 200 MG TABLET PO SCH ×4 (05:57→21:04)
[2017-12-07] MEDS: LEVOTHYROXINE 100 MCG TABLET PO SCH (05:58)
[2017-12-07 07:47] LABS: BASOPHILS # (AUTO) 0.05 x10^3/uL (0-0.1); BASOPHILS % (AUTO) 1 % (0-1); EOSINOPHILS # (AUTO) 0.57 x10^3/uL (0-0.4); EOSINOPHILS % (AUTO) 7 % (1-7); LYMPHOCYTES % (AUTO) 23 % (22-44); MD NO; MEAN CORPUSCULAR HEMOGLOBIN 26.7 pg (27.0-34.8); MEAN CORPUSCULAR HGB CONC 32.3 g/dL (32.4-35.8); MEAN CORPUSCULAR VOLUME 82.8 fL (80-100); MEAN PLATELET VOLUME 8.1 fL (7.4-10.4); MONOCYTES # (AUTO) 0.65 x10^3/uL (0.2-0.8); MONOCYTES % (AUTO) 8 % (2-9); NEUTROPHILS # (AUTO) 4.82 x10^3/uL (1.8-6.8); NEUTROPHILS % (AUTO) 61 % (42-75); PLATELET COUNT 399 x10^3/uL (130-400); RED BLOOD COUNT 2.78 x10^6/uL (3.82-5.3); RED CELL DISTRIBUTION WIDTH 16.3 % (9.6-15.2)
[2017-12-07 07:53] VITALS: BP 115/76
[2017-12-07 07:56] LABS: ALBUMIN 2.3 g/dL (3.4-5.0); ANION GAP 9 mmol/L (5-15); CALCIUM 8.4 mg/dL (8.5-10.1); CHLORIDE 113 mmol/L (98-107); CREATININE 1.72 mg/dL (0.55-1.02)
[2017-12-07] MEDS ORDERED: MIDAZOLAM 1 MG/ML, 2ML ONE (10:30)
[2017-12-07] MEDS ORDERED: FENTANYL PF 250 MCG/5ML ONE (10:30)
[2017-12-07] MEDS ORDERED: ONDANSETRON 2MG/ML, 2ML ONE ×2 (10:31→12:13)
[2017-12-07] MEDS ORDERED: SUCCINYLCHOLINE 20 MG/ML, 10ML ONE (10:31)
[2017-12-07] MEDS ORDERED: PROPOFOL 10 MG/ML, 20ML ONE (10:31)
[2017-12-07] MEDS ORDERED: ROCURONIUM 10 MG/ML,10ML ONE (10:31)
[2017-12-07] MEDS ORDERED: PROMETHAZINE 25 MG/ML, 1ML IV PRN (11:00)
[2017-12-07] MEDS ORDERED: OXYcodone 5 MG/5 ML ORAL.SOL UDC PO PRN (11:00)
[2017-12-07] MEDS ORDERED: ALBUTEROL SULFATE 2.5 MG/3 ML NPPB PRN (11:00)
[2017-12-07] MEDS ORDERED: MEPERIDINE/PF 25MG/0.5ML IVPush PRN (11:00)
[2017-12-07] MEDS ORDERED: ONDANSETRON 2MG/ML, 2ML IVPush PRN (11:00)
[2017-12-07] MEDS ORDERED: hydrALAzine 20 MG/ML, 1ML IV PRN (11:00)
[2017-12-07] MEDS ORDERED: KETOROLAC 30 MG/1 ML IV PRN (11:00)
[2017-12-07] MEDS ORDERED: HYDROmorphone 1 MG/ML, 1ML IV PRN (11:00)
[2017-12-07] MEDS ORDERED: LABETALOL 5MG/ML, 20ML IV PRN (11:00)
[2017-12-07] MEDS ORDERED: OXYcodone 5 MG/5 ML ORAL.SOL UDC ONE (11:31)
[2017-12-07] MEDS ORDERED: FENTANYL PF 100 MCG/2ML ONE (11:31)
[2017-12-07] MEDS ORDERED: ACETAMINOPHEN 650 MG/20.3 ML UDC ONE (11:31)
[2017-12-07] MEDS ORDERED: KETOROLAC 30 MG/1 ML ONE (11:31)
[2017-12-07] MEDS: ACETAMINOPHEN 325 MG TABLET PO PRN (11:35)
[2017-12-07] MEDS: FENTANYL PF 100 MCG/2ML IV PRN ×2 (11:36→11:46)
[2017-12-07] MEDS: ALLOPURINOL 100 MG TABLET PO SCH (13:22)
[2017-12-07] MEDS: VENLAFAXINE 50MG TABLET PO SCH (13:22)
[2017-12-07] MEDS: PANTOPROZOLE 40MG TABLET PO SCH (13:22)
[2017-12-07] MEDS: SODIUM BICARBONATE 650 MG TABLET PO SCH ×2 (13:22→21:04)
[2017-12-07] MEDS: D5%-0.45% NACL 1,000 ML IV SCH (13:22)
[2017-12-07] MEDS: MULTIVITAMINS/MINERALS TABLET PO SCH (13:22)
[2017-12-07] MEDS: LIOTHYRONINE 5 MCG TABLET PO SCH (13:23)
[2017-12-07] MEDS: DOXYCYCLINE 100MG TABLET PO SCH ×2 (13:23→21:04)
[2017-12-07] MEDS: CALCITRIOL 0.25 MCG CAPSULE PO SCH (13:23)
[2017-12-07 13:50] VITALS: BP 127/77
[2017-12-07 18:47] VITALS: BP 124/85
[2017-12-08] MEDS: AMPICILLIN/SULBACTAM 3 GM in SODIUM CHLORIDE 0.9% 100 ML IV SCH ×4 (01:43→20:15)
[2017-12-08 01:53] VITALS: BP 109/72
[2017-12-08 05:11] LABS: BASOPHILS # (AUTO) 0.03 x10^3/uL (0-0.1); BASOPHILS % (AUTO) 0 % (0-1); EOSINOPHILS # (AUTO) 0.32 x10^3/uL (0-0.4); EOSINOPHILS % (AUTO) 5 % (1-7); LYMPHOCYTES # (AUTO) 0.98 x10^3/uL (1-3.4); LYMPHOCYTES % (AUTO) 16 % (22-44); MD NO; MEAN CORPUSCULAR HEMOGLOBIN 27.1 pg (27.0-34.8); MEAN CORPUSCULAR HGB CONC 32.6 g/dL (32.4-35.8); MEAN CORPUSCULAR VOLUME 83.3 fL (80-100); MEAN PLATELET VOLUME 7.4 fL (7.4-10.4); MONOCYTES # (AUTO) 0.68 x10^3/uL (0.2-0.8); MONOCYTES % (AUTO) 11 % (2-9); NEUTROPHILS # (AUTO) 4.11 x10^3/uL (1.8-6.8); NEUTROPHILS % (AUTO) 67 % (42-75); PLATELET COUNT 348 x10^3/uL (130-400); RED BLOOD COUNT 2.93 x10^6/uL (3.82-5.3); RED CELL DISTRIBUTION WIDTH 16.1 % (9.6-15.2)
[2017-12-08 05:22] LABS: CHLORIDE 115 mmol/L (98-107)
[2017-12-08 05:27] LABS: ALBUMIN 2.3 g/dL (3.4-5.0); ANION GAP 9 mmol/L (5-15); CALCIUM 8.3 mg/dL (8.5-10.1); CREATININE 1.95 mg/dL (0.55-1.02)
[2017-12-08] MEDS: LEVOTHYROXINE 100 MCG TABLET PO SCH (05:36)
[2017-12-08] MEDS: GUAIFENESIN 200 MG TABLET PO SCH ×4 (05:36→20:15)
[2017-12-08] MEDS: D5%-0.45% NACL 1,000 ML IV SCH ×2 (05:37→18:11)
[2017-12-08 08:33] VITALS: BP 117/78
[2017-12-08] MEDS: CALCITRIOL 0.25 MCG CAPSULE PO SCH (08:58)
[2017-12-08] MEDS: SODIUM BICARBONATE 650 MG TABLET PO SCH ×2 (08:58→20:15)
[2017-12-08] MEDS: VENLAFAXINE 50MG TABLET PO SCH (08:58)
[2017-12-08] MEDS: PANTOPROZOLE 40MG TABLET PO SCH (08:58)
[2017-12-08] MEDS: ALLOPURINOL 100 MG TABLET PO SCH (08:58)
[2017-12-08] MEDS: DOXYCYCLINE 100MG TABLET PO SCH ×2 (08:59→20:15)
[2017-12-08] MEDS: LIOTHYRONINE 5 MCG TABLET PO SCH (09:00)
[2017-12-08] MEDS: MULTIVITAMINS/MINERALS TABLET PO SCH (12:55)
[2017-12-08 13:19] VITALS: BP 130/82
[2017-12-08 18:40] VITALS: BP 130/85
[2017-12-09] MEDS: AMPICILLIN/SULBACTAM 3 GM in SODIUM CHLORIDE 0.9% 100 ML IV SCH ×4 (01:32→19:37)
[2017-12-09 02:08] VITALS: BP 128/81
[2017-12-09] MEDS: GUAIFENESIN 200 MG TABLET PO SCH ×4 (05:14→21:38)
[2017-12-09] MEDS: LEVOTHYROXINE 100 MCG TABLET PO SCH (05:14)
[2017-12-09] MEDS: D5%-0.45% NACL 1,000 ML IV SCH ×2 (05:15→16:13)
[2017-12-09 08:13] LABS: ALBUMIN 2.2 g/dL (3.4-5.0); ANION GAP 8 mmol/L (5-15); CALCIUM 8.2 mg/dL (8.5-10.1); CHLORIDE 112 mmol/L (98-107); CREATININE 1.66 mg/dL (0.55-1.02)
[2017-12-09 08:16] VITALS: BP 131/83
[2017-12-09] MEDS: PANTOPROZOLE 40MG TABLET PO SCH (08:32)
[2017-12-09] MEDS: LIOTHYRONINE 5 MCG TABLET PO SCH (09:36)
[2017-12-09] MEDS: ERGOCALCIFEROL 50,000 UNIT CAPSULE PO SCH (09:36)
[2017-12-09] MEDS: ALLOPURINOL 100 MG TABLET PO SCH (09:36)
[2017-12-09] MEDS: DOXYCYCLINE 100MG TABLET PO SCH ×2 (09:36→21:38)
[2017-12-09] MEDS: VENLAFAXINE 50MG TABLET PO SCH (09:36)
[2017-12-09] MEDS: CALCITRIOL 0.25 MCG CAPSULE PO SCH (09:36)
[2017-12-09] MEDS: SODIUM BICARBONATE 650 MG TABLET PO SCH ×2 (09:36→21:38)
[2017-12-09] MEDS: MULTIVITAMINS/MINERALS TABLET PO SCH (12:12)
[2017-12-09 14:11] VITALS: BP 118/80
[2017-12-09 19:01] VITALS: BP 132/89
[2017-12-10] MEDS: AMPICILLIN/SULBACTAM 3 GM in SODIUM CHLORIDE 0.9% 100 ML IV SCH ×4 (01:15→19:54)
[2017-12-10] MEDS: D5%-0.45% NACL 1,000 ML IV SCH ×3 (01:15→23:50)
[2017-12-10 01:33] VITALS: BP 142/90
[2017-12-10 05:07] LABS: BASOPHILS # (AUTO) 0.01 x10^3/uL (0-0.1); BASOPHILS % (AUTO) 0 % (0-1); EOSINOPHILS # (AUTO) 0.25 x10^3/uL (0-0.4); EOSINOPHILS % (AUTO) 4 % (1-7); LYMPHOCYTES % (AUTO) 31 % (22-44); MD NO; MEAN CORPUSCULAR HEMOGLOBIN 27.8 pg (27.0-34.8); MEAN CORPUSCULAR HGB CONC 33.1 g/dL (32.4-35.8); MEAN PLATELET VOLUME 8.1 fL (7.4-10.4); MONOCYTES # (AUTO) 1.08 x10^3/uL (0.2-0.8); MONOCYTES % (AUTO) 18 % (2-9); NEUTROPHILS # (AUTO) 2.92 x10^3/uL (1.8-6.8); NEUTROPHILS % (AUTO) 47 % (42-75); PLATELET COUNT 290 x10^3/uL (130-400); RED BLOOD COUNT 2.98 x10^6/uL (3.82-5.3)
[2017-12-10 05:12] LABS: ALBUMIN 2.2 g/dL (3.4-5.0); ANION GAP 8 mmol/L (5-15); CALCIUM 8.2 mg/dL (8.5-10.1); CHLORIDE 114 mmol/L (98-107); CREATININE 1.49 mg/dL (0.55-1.02)
[2017-12-10] MEDS: GUAIFENESIN 200 MG TABLET PO SCH ×4 (06:18→19:55)
[2017-12-10] MEDS: LEVOTHYROXINE 100 MCG TABLET PO SCH (06:18)
[2017-12-10 07:40] VITALS: BP 135/87
[2017-12-10] MEDS: VENLAFAXINE 50MG TABLET PO SCH (08:35)
[2017-12-10] MEDS: CALCITRIOL 0.25 MCG CAPSULE PO SCH (08:35)
[2017-12-10] MEDS: ALLOPURINOL 100 MG TABLET PO SCH (08:35)
[2017-12-10] MEDS: PANTOPROZOLE 40MG TABLET PO SCH (08:35)
[2017-12-10] MEDS: LIOTHYRONINE 5 MCG TABLET PO SCH (08:36)
[2017-12-10] MEDS: SODIUM BICARBONATE 650 MG TABLET PO SCH ×2 (08:36→19:55)
[2017-12-10] MEDS: DOXYCYCLINE 100MG TABLET PO SCH ×2 (08:36→19:55)
[2017-12-10] MEDS ORDERED: MAGNESIUM SULFATE PMX 2GM/50ML 50 ML IV ONE (11:00)
[2017-12-10] MEDS: MULTIVITAMINS/MINERALS TABLET PO SCH (11:09)
[2017-12-10 14:05] VITALS: BP 103/70
[2017-12-10 20:39] VITALS: BP 124/84
[2017-12-11] MEDS: AMPICILLIN/SULBACTAM 3 GM in SODIUM CHLORIDE 0.9% 100 ML IV SCH ×4 (01:47→19:29)
[2017-12-11 01:52] VITALS: BP 120/80
[2017-12-11 05:41] LABS: BASOPHILS # (AUTO) 0.03 x10^3/uL (0-0.1); BASOPHILS % (AUTO) 0 % (0-1); EOSINOPHILS # (AUTO) 0.24 x10^3/uL (0-0.4); EOSINOPHILS % (AUTO) 3 % (1-7); LYMPHOCYTES # (AUTO) 2.34 x10^3/uL (1-3.4); LYMPHOCYTES % (AUTO) 34 % (22-44); MD NO; MEAN CORPUSCULAR HEMOGLOBIN 27.5 pg (27.0-34.8); MEAN CORPUSCULAR HGB CONC 32.8 g/dL (32.4-35.8); MEAN CORPUSCULAR VOLUME 83.7 fL (80-100); MEAN PLATELET VOLUME 8.2 fL (7.4-10.4); MONOCYTES # (AUTO) 0.89 x10^3/uL (0.2-0.8); MONOCYTES % (AUTO) 13 % (2-9); NEUTROPHILS # (AUTO) 3.49 x10^3/uL (1.8-6.8); NEUTROPHILS % (AUTO) 50 % (42-75); PLATELET COUNT 281 x10^3/uL (130-400); RED BLOOD COUNT 2.95 x10^6/uL (3.82-5.3); RED CELL DISTRIBUTION WIDTH 16.4 % (9.6-15.2)
[2017-12-11] MEDS: GUAIFENESIN 200 MG TABLET PO SCH ×4 (05:41→20:18)
[2017-12-11] MEDS: LEVOTHYROXINE 100 MCG TABLET PO SCH (05:42)
[2017-12-11 05:54] LABS: ALBUMIN 2.3 g/dL (3.4-5.0); ANION GAP 8 mmol/L (5-15); CALCIUM 8.2 mg/dL (8.5-10.1); CHLORIDE 114 mmol/L (98-107)
[2017-12-11 05:55] LABS: CREATININE 1.65 mg/dL (0.55-1.02)
[2017-12-11 07:19] VITALS: BP 128/85
[2017-12-11] MEDS: SODIUM BICARBONATE 650 MG TABLET PO SCH ×2 (08:10→20:17)
[2017-12-11] MEDS: CALCITRIOL 0.25 MCG CAPSULE PO SCH (08:10)
[2017-12-11] MEDS: DOXYCYCLINE 100MG TABLET PO SCH ×2 (08:11→20:17)
[2017-12-11] MEDS: PANTOPROZOLE 40MG TABLET PO SCH (08:11)
[2017-12-11] MEDS: LIOTHYRONINE 5 MCG TABLET PO SCH (08:11)
[2017-12-11] MEDS: ALLOPURINOL 100 MG TABLET PO SCH (08:12)
[2017-12-11] MEDS: VENLAFAXINE 50MG TABLET PO SCH (08:12)
[2017-12-11] MEDS: D5%-0.45% NACL 1,000 ML IV SCH (11:23)
[2017-12-11] MEDS: MULTIVITAMINS/MINERALS TABLET PO SCH (11:49)
[2017-12-11] MEDS: MAGNESIUM SULFATE PMX 2GM/50ML 50 ML IV SCH ×2 (11:50→20:18)
[2017-12-11 12:23] VITALS: BP 137/92
[2017-12-11 19:08] VITALS: BP 113/74
[2017-12-12] MEDS: D5%-0.45% NACL 1,000 ML IV SCH ×2 (01:36→17:06)
[2017-12-12] MEDS: AMPICILLIN/SULBACTAM 3 GM in SODIUM CHLORIDE 0.9% 100 ML IV SCH ×2 (01:36→08:25)
[2017-12-12 03:56] VITALS: BP 114/76
[2017-12-12] MEDS: LEVOTHYROXINE 100 MCG TABLET PO SCH (05:45)
[2017-12-12] MEDS: GUAIFENESIN 200 MG TABLET PO SCH ×4 (05:45→21:17)
[2017-12-12 05:54] LABS: ALBUMIN 2.2 g/dL (3.4-5.0); ANION GAP 7 mmol/L (5-15); CALCIUM 8.4 mg/dL (8.5-10.1); CHLORIDE 115 mmol/L (98-107); CREATININE 1.62 mg/dL (0.55-1.02)
[2017-12-12 06:04] LABS: BASOPHILS # (AUTO) 0.04 x10^3/uL (0-0.1); BASOPHILS % (AUTO) 1 % (0-1); EOSINOPHILS # (AUTO) 0.25 x10^3/uL (0-0.4); EOSINOPHILS % (AUTO) 3 % (1-7); LYMPHOCYTES # (AUTO) 2.44 x10^3/uL (1-3.4); LYMPHOCYTES % (AUTO) 32 % (22-44); MD NO; MEAN CORPUSCULAR HEMOGLOBIN 27.7 pg (27.0-34.8); MEAN CORPUSCULAR HGB CONC 33.2 g/dL (32.4-35.8); MEAN CORPUSCULAR VOLUME 83.4 fL (80-100); MEAN PLATELET VOLUME 8.2 fL (7.4-10.4); MONOCYTES # (AUTO) 0.88 x10^3/uL (0.2-0.8); MONOCYTES % (AUTO) 12 % (2-9); NEUTROPHILS # (AUTO) 3.98 x10^3/uL (1.8-6.8); NEUTROPHILS % (AUTO) 52 % (42-75); PLATELET COUNT 273 x10^3/uL (130-400); RED BLOOD COUNT 3.04 x10^6/uL (3.82-5.3); RED CELL DISTRIBUTION WIDTH 16.4 % (9.6-15.2)
[2017-12-12 07:02] VITALS: BP 136/87
[2017-12-12] MEDS: PANTOPROZOLE 40MG TABLET PO SCH (08:25)
[2017-12-12] MEDS: LIOTHYRONINE 5 MCG TABLET PO SCH (08:25)
[2017-12-12] MEDS: VENLAFAXINE 50MG TABLET PO SCH (08:26)
[2017-12-12] MEDS: ALLOPURINOL 100 MG TABLET PO SCH (08:26)
[2017-12-12] MEDS: DOXYCYCLINE 100MG TABLET PO SCH ×2 (08:27→21:17)
[2017-12-12] MEDS: SODIUM BICARBONATE 650 MG TABLET PO SCH ×2 (08:27→21:20)
[2017-12-12] MEDS: CALCITRIOL 0.25 MCG CAPSULE PO SCH (08:27)
[2017-12-12] MEDS: MULTIVITAMINS/MINERALS TABLET PO SCH (11:17)
[2017-12-12] MEDS: AMOXICILLIN/CLAV 875-125MG TABLET PO SCH ×2 (11:17→21:17)
[2017-12-12 12:07] VITALS: BP 137/89
[2017-12-12] MEDS ORDERED: MORPHINE SULFATE 4 MG/ML, 1ML IVPush ONE (13:20)
[2017-12-12] MEDS ORDERED: SILVER NITRATE STICK TP STA (13:49)
[2017-12-12] MEDS ORDERED: MICROFIBRILLAR COLLAGEN 70X35X1 DRESSING TP ONE (14:00)
[2017-12-12 18:44] VITALS: BP 113/78
[2017-12-13 01:42] VITALS: BP 130/76
[2017-12-13] MEDS: D5%-0.45% NACL 1,000 ML IV SCH (03:06)
[2017-12-13] MEDS: GUAIFENESIN 200 MG TABLET PO SCH ×4 (05:41→20:12)
[2017-12-13] MEDS: LEVOTHYROXINE 100 MCG TABLET PO SCH (05:41)
[2017-12-13 06:30] VITALS: BP 119/76
[2017-12-13] MEDS: PANTOPROZOLE 40MG TABLET PO SCH (08:23)
[2017-12-13] MEDS: SODIUM BICARBONATE 650 MG TABLET PO SCH ×2 (08:23→20:12)
[2017-12-13] MEDS: CALCITRIOL 0.25 MCG CAPSULE PO SCH (08:23)
[2017-12-13] MEDS: DOXYCYCLINE 100MG TABLET PO SCH ×2 (08:23→20:12)
[2017-12-13] MEDS: VENLAFAXINE 50MG TABLET PO SCH (08:23)
[2017-12-13] MEDS: AMOXICILLIN/CLAV 875-125MG TABLET PO SCH ×2 (08:23→20:12)
[2017-12-13] MEDS: LIOTHYRONINE 5 MCG TABLET PO SCH (08:23)
[2017-12-13] MEDS: ALLOPURINOL 100 MG TABLET PO SCH (08:24)
[2017-12-13 08:40] LABS: ALBUMIN 2.3 g/dL (3.4-5.0); ANION GAP 7 mmol/L (5-15); CALCIUM 8.3 mg/dL (8.5-10.1); CHLORIDE 113 mmol/L (98-107); CREATININE 1.47 mg/dL (0.55-1.02)
[2017-12-13] MEDS: MULTIVITAMINS/MINERALS TABLET PO SCH (11:40)
[2017-12-13 12:31] VITALS: BP 145/93
[2017-12-13 19:17] VITALS: BP 124/80
[2017-12-14 00:39] VITALS: BP 115/78
[2017-12-14] MEDS: GUAIFENESIN 200 MG TABLET PO SCH ×4 (05:20→21:53)
[2017-12-14] MEDS: LEVOTHYROXINE 100 MCG TABLET PO SCH (05:20)
[2017-12-14 07:09] VITALS: BP 138/90
[2017-12-14] MEDS: SODIUM BICARBONATE 650 MG TABLET PO SCH ×2 (09:47→21:53)
[2017-12-14] MEDS: AMOXICILLIN/CLAV 875-125MG TABLET PO SCH ×2 (09:47→21:53)
[2017-12-14] MEDS: PANTOPROZOLE 40MG TABLET PO SCH (09:48)
[2017-12-14] MEDS: VENLAFAXINE 50MG TABLET PO SCH (09:48)
[2017-12-14] MEDS: LIOTHYRONINE 5 MCG TABLET PO SCH (09:48)
[2017-12-14] MEDS: CALCITRIOL 0.25 MCG CAPSULE PO SCH (09:48)
[2017-12-14] MEDS: DOXYCYCLINE 100MG TABLET PO SCH ×2 (09:48→21:53)
[2017-12-14] MEDS: ALLOPURINOL 100 MG TABLET PO SCH (09:48)
[2017-12-14] MEDS: MULTIVITAMINS/MINERALS TABLET PO SCH (09:48)
[2017-12-14] MEDS: MORPHINE SULFATE 4 MG/ML, 1ML IVPush PRN (11:24)
[2017-12-14 13:30] VITALS: BP 109/71
[2017-12-14 19:30] VITALS: BP 135/86
[2017-12-15 00:27] VITALS: BP 134/84
[2017-12-15] MEDS: GUAIFENESIN 200 MG TABLET PO SCH ×4 (05:45→21:39)
[2017-12-15] MEDS: LEVOTHYROXINE 100 MCG TABLET PO SCH (05:46)
[2017-12-15 06:12] LABS: ALBUMIN 2.4 g/dL (3.4-5.0); ANION GAP 8 mmol/L (5-15); CALCIUM 8.7 mg/dL (8.5-10.1); CHLORIDE 114 mmol/L (98-107); CREATININE 1.98 mg/dL (0.55-1.02)
[2017-12-15 06:54] VITALS: BP 123/82
[2017-12-15] MEDS: SODIUM CHLORIDE 0.45% 1,000 ML IV SCH ×3 (07:30→21:47)
[2017-12-15] MEDS: PANTOPROZOLE 40MG TABLET PO SCH (07:30)
[2017-12-15] MEDS: ALLOPURINOL 100 MG TABLET PO SCH (09:00)
[2017-12-15] MEDS: MULTIVITAMINS/MINERALS TABLET PO SCH (11:00)
[2017-12-15 12:35] VITALS: BP 123/80
[2017-12-15] MEDS: CALCITRIOL 0.25 MCG CAPSULE PO SCH (13:17)
[2017-12-15] MEDS: DOXYCYCLINE 100MG TABLET PO SCH ×2 (13:17→21:39)
[2017-12-15] MEDS: LIOTHYRONINE 5 MCG TABLET PO SCH (13:17)
[2017-12-15] MEDS: AMOXICILLIN/CLAV 875-125MG TABLET PO SCH ×2 (13:17→21:39)
[2017-12-15] MEDS: VENLAFAXINE 50MG TABLET PO SCH (13:20)
[2017-12-15] MEDS: SODIUM BICARBONATE 650 MG TABLET PO SCH ×2 (13:20→21:39)
[2017-12-15 18:33] VITALS: BP 101/68
[2017-12-16 01:07] VITALS: BP 145/92
[2017-12-16] MEDS: SODIUM CHLORIDE 0.45% 1,000 ML IV SCH ×3 (05:29→21:50)
[2017-12-16] MEDS: GUAIFENESIN 200 MG TABLET PO SCH ×4 (05:29→21:35)
[2017-12-16] MEDS: LEVOTHYROXINE 100 MCG TABLET PO SCH (05:29)
[2017-12-16 05:51] LABS: ALBUMIN 2.5 g/dL (3.4-5.0); ANION GAP 9 mmol/L (5-15); CALCIUM 8.6 mg/dL (8.5-10.1); CHLORIDE 114 mmol/L (98-107); CREATININE 1.73 mg/dL (0.55-1.02)
[2017-12-16 08:14] VITALS: BP 133/88
[2017-12-16] MEDS: ALLOPURINOL 100 MG TABLET PO SCH (09:00)
[2017-12-16] MEDS: ERGOCALCIFEROL 50,000 UNIT CAPSULE PO SCH (09:00)
[2017-12-16] MEDS: VENLAFAXINE 50MG TABLET PO SCH (09:21)
[2017-12-16] MEDS: DOXYCYCLINE 100MG TABLET PO SCH ×2 (09:21→21:35)
[2017-12-16] MEDS: PANTOPROZOLE 40MG TABLET PO SCH (09:21)
[2017-12-16] MEDS: AMOXICILLIN/CLAV 875-125MG TABLET PO SCH ×2 (09:21→21:35)
[2017-12-16] MEDS: SODIUM BICARBONATE 650 MG TABLET PO SCH ×2 (09:21→21:35)
[2017-12-16] MEDS: CALCITRIOL 0.25 MCG CAPSULE PO SCH (09:21)
[2017-12-16] MEDS: LIOTHYRONINE 5 MCG TABLET PO SCH (09:21)
[2017-12-16] MEDS: MORPHINE SULFATE 4 MG/ML, 1ML IVPush PRN (10:22)
[2017-12-16] MEDS: MULTIVITAMINS/MINERALS TABLET PO SCH (11:00)
[2017-12-16] MEDS ORDERED: SILVER NITRATE STICK TP ONE (12:00)
[2017-12-16 14:25] VITALS: BP 120/81
[2017-12-16 20:28] VITALS: BP 111/73
[2017-12-17 00:33] VITALS: BP 112/73
[2017-12-17] MEDS: GUAIFENESIN 200 MG TABLET PO SCH ×4 (05:40→21:41)
[2017-12-17] MEDS: LEVOTHYROXINE 100 MCG TABLET PO SCH (05:40)
[2017-12-17] MEDS: SODIUM CHLORIDE 0.45% 1,000 ML IV SCH ×2 (06:09→15:36)
[2017-12-17 07:55] VITALS: BP 118/77
[2017-12-17] MEDS: LIOTHYRONINE 5 MCG TABLET PO SCH (08:51)
[2017-12-17] MEDS: PANTOPROZOLE 40MG TABLET PO SCH (08:51)
[2017-12-17] MEDS: CALCITRIOL 0.25 MCG CAPSULE PO SCH (08:51)
[2017-12-17] MEDS: VENLAFAXINE 50MG TABLET PO SCH (08:51)
[2017-12-17] MEDS: SODIUM BICARBONATE 650 MG TABLET PO SCH ×2 (08:52→21:41)
[2017-12-17] MEDS: AMOXICILLIN/CLAV 875-125MG TABLET PO SCH (08:52)
[2017-12-17] MEDS: ACETAMINOPHEN 325 MG TABLET PO PRN (08:52)
[2017-12-17] MEDS: DOXYCYCLINE 100MG TABLET PO SCH (08:52)
[2017-12-17] MEDS: ALLOPURINOL 100 MG TABLET PO SCH (08:52)
[2017-12-17] MEDS: MULTIVITAMINS/MINERALS TABLET PO SCH (12:16)
[2017-12-17 15:14] VITALS: BP 124/78
[2017-12-17 19:33] VITALS: BP 109/75
[2017-12-18] MEDS: SODIUM CHLORIDE 0.45% 1,000 ML IV SCH (01:30)
[2017-12-18 02:16] VITALS: BP 124/84
[2017-12-18] MEDS: GUAIFENESIN 200 MG TABLET PO SCH ×4 (06:31→20:32)
[2017-12-18] MEDS: LEVOTHYROXINE 100 MCG TABLET PO SCH (06:32)
[2017-12-18] MEDS ORDERED: SODIUM BICARBONATE 8.4% 100 MEQ in DEXTROSE 5% 1,000 ML IV SCH (07:00)
[2017-12-18 07:56] VITALS: BP 126/84
[2017-12-18] MEDS: VENLAFAXINE 50MG TABLET PO SCH (08:05)
[2017-12-18] MEDS: MULTIVITAMINS/MINERALS TABLET PO SCH (08:05)
[2017-12-18] MEDS: CALCITRIOL 0.25 MCG CAPSULE PO SCH (08:05)
[2017-12-18] MEDS: LIOTHYRONINE 5 MCG TABLET PO SCH (08:05)
[2017-12-18] MEDS: PANTOPROZOLE 40MG TABLET PO SCH (08:05)
[2017-12-18] MEDS: ALLOPURINOL 100 MG TABLET PO SCH (08:05)
[2017-12-18] MEDS: SODIUM BICARBONATE 650 MG TABLET PO SCH ×2 (08:05→20:32)
[2017-12-18 13:43] VITALS: BP 115/76
[2017-12-18 20:56] VITALS: BP 121/82
[2017-12-19 03:55] VITALS: BP 111/74
[2017-12-19 05:33] LABS: BASOPHILS # (AUTO) 0.07 x10^3/uL (0-0.1); BASOPHILS % (AUTO) 1 % (0-1); EOSINOPHILS # (AUTO) 0.31 x10^3/uL (0-0.4); EOSINOPHILS % (AUTO) 3 % (1-7); LYMPHOCYTES # (AUTO) 2.99 x10^3/uL (1-3.4); LYMPHOCYTES % (AUTO) 33 % (22-44); MD NO; MEAN CORPUSCULAR HEMOGLOBIN 27.3 pg (27.0-34.8); MEAN CORPUSCULAR HGB CONC 32.6 g/dL (32.4-35.8); MEAN CORPUSCULAR VOLUME 83.9 fL (80-100); MEAN PLATELET VOLUME 7.6 fL (7.4-10.4); MONOCYTES # (AUTO) 0.77 x10^3/uL (0.2-0.8); MONOCYTES % (AUTO) 9 % (2-9); NEUTROPHILS # (AUTO) 4.83 x10^3/uL (1.8-6.8); NEUTROPHILS % (AUTO) 54 % (42-75); PLATELET COUNT 287 x10^3/uL (130-400); RED BLOOD COUNT 3.16 x10^6/uL (3.82-5.3); RED CELL DISTRIBUTION WIDTH 16.5 % (9.6-15.2)
[2017-12-19 05:34] LABS: ALBUMIN 2.6 g/dL (3.4-5.0); ANION GAP 8 mmol/L (5-15); CALCIUM 8.3 mg/dL (8.5-10.1); CHLORIDE 113 mmol/L (98-107)
[2017-12-19 05:35] LABS: CREATININE 1.59 mg/dL (0.55-1.02)
[2017-12-19] MEDS: GUAIFENESIN 200 MG TABLET PO SCH ×4 (05:54→21:00)
[2017-12-19] MEDS: LEVOTHYROXINE 100 MCG TABLET PO SCH (05:54)
[2017-12-19 07:25] VITALS: BP 127/84
[2017-12-19] MEDS: CALCITRIOL 0.25 MCG CAPSULE PO SCH (07:40)
[2017-12-19] MEDS: SODIUM BICARBONATE 650 MG TABLET PO SCH ×2 (07:40→21:20)
[2017-12-19] MEDS: ALLOPURINOL 100 MG TABLET PO SCH (07:40)
[2017-12-19] MEDS: VENLAFAXINE 50MG TABLET PO SCH (07:40)
[2017-12-19] MEDS: MULTIVITAMINS/MINERALS TABLET PO SCH (07:40)
[2017-12-19] MEDS: PANTOPROZOLE 40MG TABLET PO SCH (07:40)
[2017-12-19] MEDS: LIOTHYRONINE 5 MCG TABLET PO SCH (07:41)
[2017-12-19] MEDS: ACETAMINOPHEN 325 MG TABLET PO PRN (10:22)
[2017-12-19] MEDS: MORPHINE SULFATE 4 MG/ML, 1ML IVPush PRN (11:43)
[2017-12-19 13:06] VITALS: BP 127/85
[2017-12-19 19:58] VITALS: BP 110/74
[2017-12-20 01:01] VITALS: BP 125/80
[2017-12-20] MEDS: GUAIFENESIN 200 MG TABLET PO SCH ×4 (05:57→19:46)
[2017-12-20] MEDS: LEVOTHYROXINE 100 MCG TABLET PO SCH (05:57)
[2017-12-20 07:20] VITALS: BP 123/83
[2017-12-20] MEDS: LIOTHYRONINE 5 MCG TABLET PO SCH (09:00)
[2017-12-20] MEDS: ALLOPURINOL 100 MG TABLET PO SCH ×2 (10:09→11:16)
[2017-12-20] MEDS: VENLAFAXINE 50MG TABLET PO SCH (10:09)
[2017-12-20] MEDS: CALCITRIOL 0.25 MCG CAPSULE PO SCH (10:09)
[2017-12-20] MEDS: SODIUM BICARBONATE 650 MG TABLET PO SCH ×2 (10:09→19:46)
[2017-12-20] MEDS: MULTIVITAMINS/MINERALS TABLET PO SCH (10:09)
[2017-12-20] MEDS: PANTOPROZOLE 40MG TABLET PO SCH (10:09)
[2017-12-20 14:02] VITALS: BP 120/86
[2017-12-20 20:20] VITALS: BP 112/77
[2017-12-21 03:20] VITALS: BP 116/78
[2017-12-21] MEDS: LEVOTHYROXINE 100 MCG TABLET PO SCH (05:41)
[2017-12-21] MEDS: GUAIFENESIN 200 MG TABLET PO SCH ×4 (05:41→21:17)
[2017-12-21 08:00] VITALS: BP 115/79
[2017-12-21] MEDS: PANTOPROZOLE 40MG TABLET PO SCH (08:09)
[2017-12-21] MEDS: CALCITRIOL 0.25 MCG CAPSULE PO SCH (08:10)
[2017-12-21] MEDS: SODIUM BICARBONATE 650 MG TABLET PO SCH ×2 (08:10→21:17)
[2017-12-21] MEDS: LIOTHYRONINE 5 MCG TABLET PO SCH (08:12)
[2017-12-21] MEDS: ALLOPURINOL 100 MG TABLET PO SCH (08:13)
[2017-12-21] MEDS: VENLAFAXINE 50MG TABLET PO SCH (08:14)
[2017-12-21] MEDS: MORPHINE SULFATE 4 MG/ML, 1ML IVPush PRN (10:38)
[2017-12-21] MEDS: MULTIVITAMINS/MINERALS TABLET PO SCH (12:05)
[2017-12-21 13:46] VITALS: BP 95/66
[2017-12-21] MEDS ORDERED: ENOXAPARIN 40 MG/0.4 ML SQ SCH (14:00)
[2017-12-21 19:39] VITALS: BP 91/63
[2017-12-22 01:38] VITALS: BP 96/64
[2017-12-22] MEDS: LEVOTHYROXINE 100 MCG TABLET PO SCH (05:20)
[2017-12-22] MEDS: GUAIFENESIN 200 MG TABLET PO SCH ×4 (05:20→22:08)
[2017-12-22 06:08] LABS: BASOPHILS # (AUTO) 0.05 x10^3/uL (0-0.1); BASOPHILS % (AUTO) 1 % (0-1); EOSINOPHILS # (AUTO) 0.36 x10^3/uL (0-0.4); EOSINOPHILS % (AUTO) 5 % (1-7); LYMPHOCYTES % (AUTO) 35 % (22-44); MD NO; MEAN CORPUSCULAR HEMOGLOBIN 27.9 pg (27.0-34.8); MEAN CORPUSCULAR HGB CONC 33.4 g/dL (32.4-35.8); MEAN CORPUSCULAR VOLUME 83.7 fL (80-100); MEAN PLATELET VOLUME 7.9 fL (7.4-10.4); MONOCYTES # (AUTO) 0.81 x10^3/uL (0.2-0.8); MONOCYTES % (AUTO) 10 % (2-9); NEUTROPHILS % (AUTO) 50 % (42-75); PLATELET COUNT 276 x10^3/uL (130-400); RED BLOOD COUNT 3.15 x10^6/uL (3.82-5.3); RED CELL DISTRIBUTION WIDTH 16.4 % (9.6-15.2)
[2017-12-22 06:09] LABS: ALBUMIN 2.6 g/dL (3.4-5.0); ANION GAP 8 mmol/L (5-15); CALCIUM 8.6 mg/dL (8.5-10.1); CHLORIDE 113 mmol/L (98-107); CREATININE 2.02 mg/dL (0.55-1.02)
[2017-12-22] MEDS ORDERED: MAGNESIUM SULFATE PMX 2GM/50ML 50 ML IV ONE (08:30)
[2017-12-22] MEDS: LIOTHYRONINE 5 MCG TABLET PO SCH (09:26)
[2017-12-22] MEDS: SODIUM BICARBONATE 650 MG TABLET PO SCH ×2 (09:26→22:08)
[2017-12-22] MEDS: VENLAFAXINE 50MG TABLET PO SCH (09:26)
[2017-12-22] MEDS: ALLOPURINOL 100 MG TABLET PO SCH (09:27)
[2017-12-22] MEDS: CALCITRIOL 0.25 MCG CAPSULE PO SCH (09:27)
[2017-12-22] MEDS: HEPARIN 5,000 UNITS/ML, 1ML SQ SCH ×2 (09:27→22:09)
[2017-12-22 09:28] VITALS: BP 91/61
[2017-12-22] MEDS: PANTOPROZOLE 40MG TABLET PO SCH (09:28)
[2017-12-22] MEDS: MULTIVITAMINS/MINERALS TABLET PO SCH (11:27)
[2017-12-22 13:28] VITALS: BP 87/60
[2017-12-22] MEDS: SODIUM CHLORIDE 0.9% 1,000 ML IV SCH ×2 (14:13→23:39)
[2017-12-22 19:48] VITALS: BP 120/81
[2017-12-23 01:45] VITALS: BP 118/81
[2017-12-23] MEDS: GUAIFENESIN 200 MG TABLET PO SCH ×2 (05:05→11:03)
[2017-12-23] MEDS: LEVOTHYROXINE 100 MCG TABLET PO SCH (05:05)
[2017-12-23 05:45] LABS: ALBUMIN 2.6 g/dL (3.4-5.0); ANION GAP 8 mmol/L (5-15); CALCIUM 8.4 mg/dL (8.5-10.1); CHLORIDE 115 mmol/L (98-107)
[2017-12-23] MEDS: PANTOPROZOLE 40MG TABLET PO SCH (07:29)
[2017-12-23 08:11] VITALS: BP 118/77
[2017-12-23] MEDS: CALCITRIOL 0.25 MCG CAPSULE PO SCH (09:14)
[2017-12-23] MEDS: SODIUM BICARBONATE 650 MG TABLET PO SCH ×2 (09:15→19:50)
[2017-12-23] MEDS: VENLAFAXINE 50MG TABLET PO SCH (09:15)
[2017-12-23] MEDS: LIOTHYRONINE 5 MCG TABLET PO SCH (09:16)
[2017-12-23] MEDS: ALLOPURINOL 100 MG TABLET PO SCH (09:17)
[2017-12-23] MEDS: SODIUM CHLORIDE 0.9% 1,000 ML IV SCH ×2 (09:18→19:50)
[2017-12-23] MEDS: ERGOCALCIFEROL 50,000 UNIT CAPSULE PO SCH (09:52)
[2017-12-23] MEDS: MULTIVITAMINS/MINERALS TABLET PO SCH (11:03)
[2017-12-23] MEDS: HEPARIN 5,000 UNITS/ML, 1ML SQ SCH ×2 (11:03→21:28)
[2017-12-23] MEDS: MORPHINE SULFATE 4 MG/ML, 1ML IVPush PRN (11:57)
[2017-12-23 13:13] VITALS: BP 100/67
[2017-12-23 19:38] VITALS: BP 104/68
[2017-12-24 03:46] VITALS: BP 106/69
[2017-12-24 05:27] LABS: ALBUMIN 2.5 g/dL (3.4-5.0); CALCIUM 8.2 mg/dL (8.5-10.1); CHLORIDE 117 mmol/L (98-107)
[2017-12-24 05:29] LABS: ANION GAP 7 mmol/L (5-15); CREATININE 1.69 mg/dL (0.55-1.02)
[2017-12-24] MEDS: LEVOTHYROXINE 100 MCG TABLET PO SCH (06:01)
[2017-12-24] MEDS: SODIUM CHLORIDE 0.9% 1,000 ML IV SCH (06:01)
[2017-12-24 07:55] VITALS: BP 107/69
[2017-12-24] MEDS: CALCITRIOL 0.25 MCG CAPSULE PO SCH (09:56)
[2017-12-24] MEDS: VENLAFAXINE 50MG TABLET PO SCH (09:56)
[2017-12-24] MEDS: LIOTHYRONINE 5 MCG TABLET PO SCH (09:56)
[2017-12-24] MEDS: ALLOPURINOL 100 MG TABLET PO SCH (09:56)
[2017-12-24] MEDS: MULTIVITAMINS/MINERALS TABLET PO SCH (09:56)
[2017-12-24] MEDS: SODIUM BICARBONATE 650 MG TABLET PO SCH (09:56)
[2017-12-24] MEDS: PANTOPROZOLE 40MG TABLET PO SCH (09:56)
[2017-12-24] MEDS: HEPARIN 5,000 UNITS/ML, 1ML SQ SCH (09:57)
== END 2017-12-24 13:16 | DRG 871 ==
LOC: ED 19:42 → EDIP 19:53 → CCU 19:59 → 3NE 11-15 11:37
PROVIDERS: ADMIT Hospitalist; ATTEND Hospitalist
PROC: 30233N1 Transfusion of Nonautologous Red Blood Cells into Peripheral Vein, Percutaneous Approach (ICD-10-PCS; principal; 2017-11-12)
PROC: 02HV33Z Insertion of Infusion Device into Superior Vena Cava, Percutaneous Approach (ICD-10-PCS; 2017-11-12)
PROC: B548ZZA Ultrasonography of Superior Vena Cava, Guidance (ICD-10-PCS; 2017-11-12)
PROC: 0T9B70Z Drainage of Bladder with Drainage Device, Via Natural or Artificial Opening (ICD-10-PCS; 2017-11-20)
PROC: 0HBHXZZ Excision of Right Upper Leg Skin, External Approach (ICD-10-PCS; 2017-12-07)
PROC: 0HB9XZZ Excision of Perineum Skin, External Approach (ICD-10-PCS; 2017-12-07)
DX: A41.9 Sepsis, unspecified organism (principal); R65.21 Severe sepsis with septic shock; J96.01 Acute respiratory failure with hypoxia; E43 Unspecified severe protein-calorie malnutrition; J18.9 Pneumonia, unspecified organism; N17.0 Acute kidney failure with tubular necrosis; N18.4 Chronic kidney disease, stage 4 (severe); I31.3 Pericardial effusion (noninflammatory); L02.415 Cutaneous abscess of right lower limb; N39.0 Urinary tract infection, site not specified; J90 Pleural effusion, not elsewhere classified; N76.4 Abscess of vulva; B96.20 Unspecified Escherichia coli [E. coli] as the cause of diseases classified elsewhere; D63.8 Anemia in other chronic diseases classified elsewhere; E03.9 Hypothyroidism, unspecified; E11.22 Type 2 diabetes mellitus with diabetic chronic kidney disease; E66.01 Morbid (severe) obesity due to excess calories; E83.39 Other disorders of phosphorus metabolism; E83.42 Hypomagnesemia; E83.51 Hypocalcemia; E87.6 Hypokalemia; G89.29 Other chronic pain; I12.9 Hypertensive chronic kidney disease with stage 1 through stage 4 chronic kidney disease, or unspecified chronic kidney disease; L73.2 Hidradenitis suppurativa; Z16.23 Resistance to quinolones and fluoroquinolones; Z79.899 Other long term (current) drug therapy; Z83.3 Family history of diabetes mellitus; Z86.19 Personal history of other infectious and parasitic diseases; Z93.3 Colostomy status; Z68.32 Body mass index [BMI] 32.0-32.9, adult
CPT/HCPCS: 36415; 36556; 36600; 71045; 71046; 71250; 72192; 74176; 74220; 76770; 78582; 80048; 80053; 81001; 81025; 82040; 82272; 82306; 82533; 82607; 82728; 82746; 82803; 83036; 83540; 83550; 83605; 83690; 83735; 83970; 84100; 84132; 84145; 84439; 84443; 84481; 85025; 85045; 85379; 85610; 85730; 86850; 86900; 86923; 87040; 87070; 87077; 87081; 87086; 87186; 87205; 87324; 88305; 93306; 93970; 96361; 96365; J0295; J0696; J1644; J1650; J2020; J2185; J2250; J2405; J2704; J3010; J3370; J3480; J7070; A9540; A9558; C9898; J0330; J3475; J7030; J7040; J7050; P9016; S0028